=== PATIENT | male | born 1980 | race African-American/Black ===

== ENCOUNTER 2017-08-28 09:54 | Inpatient (IN) | payer OTHER ==
[2017-08-28] MEDS ORDERED: LORazepam 1 MG TAB PO ONE (10:01)
[2017-08-28] MEDS ORDERED: OLANZapine DISINTEGR 10 MG TAB PO ONE (10:01)
--- NOTE | 2017-08-28 10:04 | EDPHY ---
H & P - Medical/Surgical History Hx Asthma: No Hx Chronic Respiratory Disease: No Hx Diabetes: No Hx Cardiac Disease: No Hx Renal Disease: No Hx Cirrhosis: No Hx Alcoholism: No Hx HIV/AIDS: No Hx Splenectomy or Spleen Trauma: No Other PMH: BIPOLAR - Social History Smoking Status: Never smoked Time Seen by Provider: 08/28/17 09:56 HPI/ROS: CHIEF COMPLAINT: M1 hold, gravely disabled HISTORY OF PRESENT ILLNESS: 36-year-old male history of bipolar disorder arrives on M1 hold "gravely disabled" from his longterm for concerns over decompensation, medication noncompliance, possible hebert. Denies suicidal or homicidal ideation. Denies hallucination. He has no complaints of pain or discomfort. Denies self-injurious behavior. Denies alcohol or drug use. REVIEW OF SYSTEMS: A ten point review of systems was performed and is negative with the exception of the items mentioned in the HPI PAST MEDICAL & SURGICAL HISTORY: Bipolar disorder SOCIAL HISTORY: Denies alcohol or drug use PHYSICAL EXAM (Prior to examination, patient consented to physical exam, hands were washed and my usual and customary physical exam procedures followed) 1) GENERAL: Well-developed, well-nourished, alert and oriented. Appears to be in no acute distress. 2) HEAD: Normocephalic, atraumatic 3) HEENT: Sclera anicteric. 4) NECK: Full range of motion. 5) LUNGS: Clear auscultation bilaterally 6) HEART: Regular rate and rhythm, no murmur, no heave, no gallop. 7) ABDOMEN: No guarding, no rebound, no focal tenderness 8) MUSCULOSKELETAL: Moving all extremities, no focal areas of tenderness, no obvious trauma. 9) BACK: No visual or palpable abnormality. 10) SKIN: No rash, no petechiae. 11) Psychiatric: Patient is oriented X 3, he has rapid speech, flight of ideas, , tangential speech. DIFFERENTIAL DIAGNOSIS: In no particular order include but limited to hebert, hypomania, psychosis, depression, suicidal ideation, homicidal ideation (Cesar,Papa Linda) Constitutional: Initial Vital Signs Temperature (C) 37.2 C 08/28/17 10:08 Heart Rate 104 H 06/21/18 10:08 Respiratory Rate 18 08/28/17 10:08 Blood Pressure 117/79 08/28/17 10:08 O2 Sat (%) 95 08/28/17 10:08 O2 Delivery Mode Room Air Allergies/Adverse Reactions: No Known Allergies Allergy (Verified 08/28/17 10:06) Home Medications: Medication Instructions Recorded Invtaiwo Lion (RX) HS 08/28/17 Lisinopril 10 mg PO DAILY 08/28/17 Trileptal 600 mg PO BID 08/28/17 Medical Decision Making ED Course/Re-evaluation: 10:01 a.m.: Patient agrees to oral medication which I think would be beneficial to him as at this time I believe him to be more than likely acutely manic. He agrees to laboratory studies and agrees to mental health evaluation. He is on an M1 hold. I saw this patient independently based on established practice protocols. Care of patient under supervision of secondary supervising physician Dr Stoner . 5:00 p.m.: Care turned over to Dr. Jose Howe awaiting mental health evaluation. (Papa Guerrero) Patient has been evaluated by mental health and accepted for admission at [address] [place] [address]. (Eusebio Turner) Other Provider: 1440: Signed out to Carley with psychiatric evaluation pending for bipolar with grave disability and on a mental health hold. (Jerald Stoner) 2100: Patient care turned over to Dr. Turner at shift change. Psych evaluation still pending. (Jose Howe) - Data Points Laboratory Results: Laboratory Results 08/28/17 10:20 08/28/17 10:20 08/28/17 08/28/17 08/28/17 19:15 10:20 10:20 WBC 5.04 10^3/uL 10^3/uL (3.80-9.50) RBC 4.61 10^6/uL 10^6/uL (4.40-6.38) Hgb 13.2 g/dL L g/dL (13.7-17.5) Hct 40.1 % % (40.0-51.0) MCV 87.0 fL fL (81.5-99.8) MCH 28.6 pg pg (27.9-34.1) MCHC 32.9 g/dL g/dL (32.4-36.7) RDW 13.4 % % (11.5-15.2) Plt Count 394 10^3/uL 10^3/uL (150-400) MPV 8.3 fL L fL (8.7-11.7) Neut % (Auto) 49.0 % % (39.3-74.2) Lymph % (Auto) 36.7 % % (15.0-45.0) Harrison % (Auto) 9.1 % % (4.5-13.0) Eos % (Auto) 4.6 % % (0.6-7.6) Baso % (Auto) 0.4 % % (0.3-1.7) Nucleat RBC Rel Count 0.0 % % (0.0-0.2) Absolute Neuts (auto) 2.47 10^3/uL 10^3/uL (1.70-6.50) Absolute Lymphs (auto) 1.85 10^3/uL 10^3/uL (1.00-3.00) Absolute Monos (auto) 0.46 10^3/uL 10^3/uL (0.30-0.80) Absolute Eos (auto) 0.23 10^3/uL 10^3/uL (0.03-0.40) Absolute Basos (auto) 0.02 10^3/uL 10^3/uL (0.02-0.10) Absolute Nucleated RBC 0.00 10^3/uL 10^3/uL (0-0.01) Immature Gran % 0.2 % % (0.0-1.1) Immature Gran # 0.01 10^3/uL 10^3/uL (0.00-0.10) Sodium 145 mEq/L mEq/L (135-145) Potassium 4.1 mEq/L mEq/L (3.3-5.0) Chloride 106 mEq/L mEq/L (97-110) Carbon Dioxide 24 mEq/l mEq/l (22-31) Anion Gap 15 mEq/L mEq/L (8-16) BUN 17 mg/dL mg/dL (7-23) Creatinine 1.1 mg/dL mg/dL (0.7-1.3) Estimated GFR > 60 Glucose 92 mg/dL mg/dL (70-100) Calcium 9.6 mg/dL mg/dL (8.5-10.4) Urine Opiates Screen NEGATIVE (NEGATIVE) Urine Barbiturates NEGATIVE (NEGATIVE) Ur Phencyclidine Scrn NEGATIVE (NEGATIVE) Ur Amphetamine Screen NEGATIVE (NEGATIVE) U Benzodiazepines Scrn NEGATIVE (NEGATIVE) Urine Cocaine Screen NEGATIVE (NEGATIVE) U Marijuana (THC) Screen NON-NEGATIVE H (NEGATIVE) Ethyl Alcohol < 10 mg/dL mg/dL (0-10) Medications Given: Discontinued Medications Lisinopril (Zestril) 10 mg PO EDNOW ONE Stop: 08/28/17 15:31 Last Admin: 08/28/17 15:35 Dose: 10 mg Lorazepam (Ativan) 1 mg PO EDNOW ONE Stop: 08/28/17 10:02 Last Admin: 08/28/17 10:22 Dose: 1 mg Olanzapine (Zyprexa Zydis) 10 mg PO EDNOW ONE Stop: 08/28/17 10:02 Last Admin: 08/28/17 10:22 Dose: 10 mg Oxcarbazepine (Trileptal) 600 mg PO EDNOW ONE Stop: 08/28/17 15:31 Last Admin: 08/28/17 15:35 Dose: 600 mg Departure - Departure Disposition: [facility] IP Clinical Impression: Bipolar disorder Qualifiers: Active/Remission status: currently active Current bipolar episode type: manic Current episode severity: unspecified Qualified Code(s): F31.9 - Bipolar disorder, unspecified Condition: Fair Referrals: Patient,NotPresent [Primary Care Provider] - As per Instructions
[2017-08-28 10:37] LABS: PLATELET COUNT 394 10^3/uL (150-400)
[2017-08-28] MEDS ORDERED: LISINOPRIL 10 MG TAB PO ONE (15:30)
[2017-08-28] MEDS ORDERED: OXcarbazepine 300 MG TAB PO ONE (15:30)
[2017-08-28] MEDS ORDERED: OXcarbazepine 300 MG TAB PO SCH (21:00)
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
--- NOTE | 2017-08-28 22:41 | ASMTTCLDSP ---
TLC Discharge Disposition Disposition: Answers: Admit Discharge Concerns/Recommendations: Notes: IN CONSULTATION WITH [facility] ED PHYSICIAN, BRIAN MOBLEY MD AND ON-CALL PSYCHIATRIST, LARRY PENA MD, BOTH CONCURRED THAT PT APPEARS TO MEET 27-65 CRITERIA REQUIRING PSYCHIATRIC HOSPITALIZATION PT APPEARS TO BE AN IMMINENT RISK OF HARM TO SELF DUE TO A MENTAL ILLNESS CONDITION. PT WAS GIVEN THE 3N PROHIBITED BELONGINGS LIST WHILE IN THE ED. Was patient given the Answers: Yes Inpatient Behavioral Health Prohibited Belongings List while in the ED? For inpatient Larry Pena MD admission, the following psychiatrist agreed to accept patient for admission to Behavioral Health ([facility]): Type of Hold: Answers: M1/72-hour Hold Hold initiated by: Answers: Other Notes: Terra San L[facility] Date Signed: 08/28/2017 10:40 PM Electronically Signed By:Theresa Dinero
[2017-08-28] MEDS ORDERED: NICOTINE POLACRILEX 2 MG GUM B PRN (23:55)
[2017-08-28] MEDS ORDERED: ACETAMINOPHEN 325 MG TAB PO PRN (23:55)
[2017-08-28] MEDS ORDERED: OLANZapine DISINTEGR 5 MG TAB PO PRN (23:55)
[2017-08-28] MEDS ORDERED: MAG HYDROX/AL HYDROX/SIMETH 30 ML UDCUP PO PRN (23:55)
[2017-08-28] MEDS ORDERED: MAGNESIUM HYDROXIDE 30 ML UDCUP PO PRN (23:55)
[2017-08-29] MEDS ORDERED: LORazepam 1 MG TAB ONE (00:02)
[2017-08-29] MEDS ORDERED: LISINOPRIL 20 MG TAB PO SCH (09:00)
[2017-08-29] MEDS: LORazepam 1 MG TAB PO PRN ×2 (09:37)
[2017-08-29] MEDS: OXcarbazepine 300 MG TAB PO SCH ×2 (11:15→20:34)
[2017-08-29] MEDS: LISINOPRIL 10 MG TAB PO SCH (11:15)
--- NOTE | 2017-08-29 12:45 | BCON ---
[f rep st] BEHAVIORAL HEALTH CONSULTATION INTERNAL MEDICINE CONSULTATION DATE OF CONSULTATION: 08/29/2017 REFERRING PHYSICIAN: Suzette Pena MD REASON FOR REFERRAL: Medical clearance for inpatient behavioral health stay. HISTORY OF PRESENT ILLNESS: This patient was brought to the emergency department on an M1 hold from his senior living due to behavioral decompensation, medication noncompliance, and possible hebert. He was found to be manic in the emergency department, and he had medication administered, including lorazepam, olanzapine, and oxcarbazepine. He was evaluated by the mental health team and admitted for further psychiatric care. He presently is without any acute complaints. PAST MEDICAL HISTORY: 1. Gallstone pancreatitis. 2. Diabetic ketoacidosis, likely due to pancreatic dysfunction caused by gallstone pancreatitis. 3. Bipolar disorder PAST SURGICAL HISTORY: He had a cholecystectomy done laparoscopically in December 2015. SOCIAL HISTORY: Per the emergency department note, he was living in a senior living. He reports that he is living with his mother in [place]. He is not working. 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 His urinary toxicology screen was positive for marijuana. FAMILY HISTORY: His father has diabetes and complications. REVIEW OF SYSTEMS: He feels sleepy from the medications he received. He denies cough or dyspnea. He denies pain. He has had weight loss, approximately 11 kg documented in the chart since January of 2016. He denies nausea, vomiting, constipation, or diarrhea. Otherwise, a 10-point review of systems is negative. PHYSICAL EXAM: VITAL SIGNS: Blood pressure is 127/72. Heart rate is 94. Respiratory rate is 12. Oxygen saturation is 97% on room air. Temperature is 36.6 degrees centigrade. His weight is 99.8 kg. GENERAL: This is an obese man , sleeping in bed, arises eventually after verbal and tactile stimulation, cooperative, in no acute distress, but sleepy. HEENT: Extraocular movements are intact. Pupils are equal, round, and reactive to light. Mucous membranes are moist. Dentition is in good condition. NECK: Supple. HEART: There is a regular rate and rhythm, with no murmurs, rubs, or gallops. LUNGS: Clear to auscultation bilaterally. ABDOMEN: Benign. EXTREMITIES: There is no cyanosis , clubbing, or edema. NEUROLOGIC: He is alert, but sleepy and tends to drop off toward sleep when not being stimulated. Cranial nerves 2-12 are grossly intact. There is no focal weakness, and sensation is intact to light touch. LABORATORY STUDIES: From the emergency department: CBC showed mild anemia with a hemoglobin of 13.2. Otherwise, CBC was normal. Serum chemistry showed normal renal function and electrolytes. Glucose was normal at 92. Toxicology screen in the serum was negative for ethyl alcohol. Toxicology screen in the urine was non-negative for marijuana but otherwise negative for substances of abuse. ASSESSMENT/RECOMMENDATIONS: 1. Mental health issues pending further evaluation and management per Psychiatry and the mental health team. 2. Obesity, with weight loss compared to 2 years ago. I will add on a TSH to the sample that was drawn yesterday to ensure that hyperthyroidism is not contributing to his psychiatric state, as well as his weight loss. He is not clinically otherwise showing signs or symptoms of hyperthyroidism. 3. Hypertension appears to be adequately controlled with lisinopril. 4. Anemia of unclear etiology. It is mild, and he can have further evaluation with primary care as an outpatient. 5. Tobacco dependence. He was encouraged to quit smoking. 6. History of diabetic ketoacidosis. This was likely due to gallstone pancreatitis causing pancreatic dysfunction. It is possible that he has a reduced pancreatic reserve as a result however his blood sugar was normal on labs drawn yesterday in the emergency department. I will add on hemoglobin A1c to his labs. I see no medical contraindications to this patient's continued stay on the inpatient behavioral health unit or to any psychiatric medications or procedures. Thank you very much for including me in the care of this patient and please do not hesitate to contact me or the hospitalist service should there be need for further medical evaluation. /[id number]/MODL MTDD
--- NOTE | 2017-08-29 15:18 | ASMTCMCOM ---
CM Note CM Note Notes: Client refused to speak to this CC. Date Signed: 08/29/2017 03:17 PM Electronically Signed By:Bill Ridley
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
[2017-08-29] MEDS: OLANZapine DISINTEGR 10 MG TAB PO SCH (20:33)
[2017-08-30] MEDS: OLANZapine DISINTEGR 5 MG TAB PO PRN (04:33)
[2017-08-30] MEDS: LORazepam 1 MG TAB PO PRN (04:33)
[2017-08-30] MEDS: OLANZapine DISINTEGR 10 MG TAB PO SCH ×2 (09:09→20:39)
[2017-08-30] MEDS: LISINOPRIL 10 MG TAB PO SCH (09:09)
[2017-08-30] MEDS: OXcarbazepine 300 MG TAB PO SCH ×2 (09:09→20:39)
--- NOTE | 2017-08-30 13:42 | ASMTBHDC ---
Notes Note: Notes: Pt. was walking the halls while speaking with CC. Pt. stated he feels "okay". Pt. reports sleeping "alright". Pt. reported his medications make him feel more drowsy "more than like to be". Pt. denied SI, HI, AH, and paranoia. Pt. stated he has AH about "things in the future". Pt. stated he wants cc to "get the ball rolling" on his discharge. Pt. slept 4.5 hours. Pt. appeared to be falling asleep standing up, while speaking with CC. Pt.'s eye were closed for most of the conversation. Date Signed: 08/30/2017 01:42 PM Electronically Signed By:Claire Templeton
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
[2017-08-31] MEDS: LISINOPRIL 10 MG TAB PO SCH (08:16)
[2017-08-31] MEDS: OXcarbazepine 300 MG TAB PO SCH ×2 (08:16→20:23)
[2017-08-31] MEDS: LORazepam 1 MG TAB PO PRN ×2 (08:16→23:58)
[2017-08-31] MEDS: OLANZapine DISINTEGR 10 MG TAB PO SCH ×2 (08:16→20:23)
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
--- NOTE | 2017-08-31 15:32 | ASMTBHDC ---
Notes Note: Notes: CC approached pt. to check in, pt. asked if CC was "dr. Bullard", when CC explained who she was, pt. was not interested in talking. Pt. stated CC can setup follow-up appointments with his providers. Pt. denied SI, HI, AVH and paranoia. Date Signed: 08/31/2017 03:32 PM Electronically Signed By:Claire Templeton
[2017-08-31] MEDS: OLANZapine DISINTEGR 5 MG TAB PO PRN (23:58)
[2017-09-01] MEDS: LISINOPRIL 10 MG TAB PO SCH (08:44)
[2017-09-01] MEDS: OXcarbazepine 300 MG TAB PO SCH ×2 (08:45→21:01)
[2017-09-01] MEDS: OLANZapine DISINTEGR 10 MG TAB PO SCH ×2 (08:45→21:01)
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
--- NOTE | 2017-09-01 13:36 | ASMTCMCOM ---
CM Note CM Note Notes: Pt. stated he is feeling "good". Pt. stated he will not be returning to his mother's home upon discharge, but will instead stay with his brother, Ever, who in currently visiting in [place]. Pt. signed LATRICE for brother Ever, adding he doesn't know his phone number but that it can be found on the [employer] website. Pt. stated he and his brother are a part of the but could not say which branch. Pt. 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 Pt. stated he plans to live on campus and possible get a job with . Pt. presents as alert, disorganized, trouble remembering who people are, guarded, and with fair eye contact. Staff report pt. sleeping 4.5 hours and sign LATRICE for [facility]. Pt's [facility] senior resident care director phone number is [phone] Date Signed: 09/01/2017 01:35 PM Electronically Signed By:Claire Templeton
--- NOTE | 2017-09-01 14:42 | SOAPPROG ---
SOAP Progress Note Assessment/Plan: Assessment: Plan: 09/01/17 14:41 Bipolar/psychosis: Much improved over Friday. [facility]. Will contact [facility] re: meds. Subjective: Pt seen, discussed with staff. Reports feeling "just fine." Up and walking in the halls today. Much better groomed, appropriately dressed. Able to sit and discuss his treatment plan inc: meds. He states he does not take Zyprexa and was recently maintained only on Trileptal. He then asks what other meds he can take. I told him I would talk to [facility] first. He is accepting of this. He states his d/c plan is to "go back to campus." He states he has housing at the dorms and plans to live there. He does state he may "spend a night or two" at his mother's home after d/c. Objective: Vital Signs Temp Pulse Resp BP Pulse Ox 36.4 C 80 12 113/78 96 09/01/17 00:27 09/01/17 07:53 09/01/17 07:53 09/01/17 08:44 09/01/17 07:53 - Time Spent With Patient Time Spent With Patient: 25" ICD10 Worksheet Patient Problems: Problems Problem Status Onset Bipolar disorder Acute Dehydration Acute Diabetic ketoacidosis Acute Renal failure Acute Vomiting Acute
[2017-09-02] MEDS: OLANZapine DISINTEGR 5 MG TAB PO PRN (03:03)
[2017-09-02] MEDS: LORazepam 1 MG TAB PO PRN ×2 (03:03→21:14)
[2017-09-02] MEDS: LISINOPRIL 10 MG TAB PO SCH (08:38)
[2017-09-02] MEDS: OLANZapine DISINTEGR 10 MG TAB PO SCH ×2 (08:39→21:10)
[2017-09-02] MEDS: OXcarbazepine 300 MG TAB PO SCH ×2 (08:39→21:10)
--- NOTE | 2017-09-02 14:02 | ASMTBHDC ---
Notes Note: Notes: CC was able to speak to [facility] (Fatou) at [phone]; briefly regarding a poss. family meeting for tomorrow. MOC noted, that she was currently at work and will be work tomorrow, provided all necessary return contact information regarding this movie writer. MOC noted,"I hate to put a restraining order in on my own son, I'm sorry sir, I'm at work, I will have to call you back later." Fleet Dispatch Manager was able to leave all necessary return contact information. Will inform, treatment team regarding [facility] participation, poss. work conflict with potential discharge, etc. Date Signed: 09/02/2017 02:02 PM Electronically Signed By:Bill Ridley
--- NOTE | 2017-09-02 15:43 | SOAPPROG ---
SOAP Progress Note Assessment/Plan: Assessment: Plan: 09/01/17 14:41 Bipolar/psychosis: Much improved over Friday. [facility]. Will contact [facility] re: meds. 09/02/17 15:45 Bipolar: Much improved overall. Dr. Bello re: continuing Invega Sustenna. Will discuss with patient. Will schedule family meeting with mother if possible. Subjective: Pt seen, discussed with staff. More engaging with me today, though unable to persist. He remains easily distracted, internally focused, disorganized. He was out in the milieu twice today attempting to interact with others or attend group. Compliant with meds. Objective: Vital Signs Temp Pulse Resp BP Pulse Ox 36.4 C 84 16 119/65 95 09/02/17 00:30 09/02/17 00:30 09/02/17 00:30 09/02/17 00:30 09/02/17 00:30 MSE: Moderately agitated, distractible. Affect is expansive with continued odd grin. Mood is "good." TP is disorganized. TC reveals internal preoccupation, likely RIS, blocking. - Time Spent With Patient Time Spent With Patient: 15" ICD10 Worksheet Patient Problems: Problems Problem Status Onset Bipolar disorder Acute Dehydration Acute Diabetic ketoacidosis Acute Renal failure Acute Vomiting Acute
[2017-09-03] MEDS: OXcarbazepine 300 MG TAB PO SCH ×2 (08:39→21:10)
[2017-09-03] MEDS: LISINOPRIL 10 MG TAB PO SCH (08:39)
[2017-09-03] MEDS: OLANZapine DISINTEGR 10 MG TAB PO SCH ×2 (08:39→21:09)
--- NOTE | 2017-09-03 15:05 | SOAPPROG ---
SOAP Progress Note Assessment/Plan: Assessment: Plan: 09/01/17 14:41 Bipolar/psychosis: Much improved over Friday. [facility]. Will contact [facility] re: meds. 09/02/17 15:45 Bipolar: Much improved overall. Dr. Bello re: continuing Invega Sustenna. Will discuss with patient. Will schedule family meeting with mother if possible. 09/03/17 15:04 Bipolar: Continued improvement. Will start Latuda to assist with mood stabilization and psychosis. He is agreeable to this after review of the risks , benefits and alternatives. Will start at 40mg, monitor. Subjective: Pt seen, discussed with staff. Interactive, but still fairly guarded. I discussed Dr. Bello's recommendations and pt is adamant he will never take a LAM again. He states he and [facility] discussed this and he was taken off of Invega due to diabetes. He then states he believes Latuda was helpful and wants to take that. Objective: Vital Signs Temp Pulse Resp BP Pulse Ox 36.6 C 86 16 119/75 97 09/03/17 00:30 09/03/17 00:30 09/03/17 00:30 09/03/17 00:30 09/03/17 00:30 MSE: Adequately groomed, coop, guarded. Becomes moderately agitated when discussing Invega. Affect is otherwise constricted, stable. Mood is "fine." TP generally linear. TC reveals no obvious delusions, though he may still be experiencing paranoia. - Time Spent With Patient Time Spent With Patient: 25" ICD10 Worksheet Patient Problems: Problems Problem Status Onset Bipolar disorder Acute Dehydration Acute Diabetic ketoacidosis Acute Renal failure Acute Vomiting Acute
[2017-09-03] MEDS: LURASIDONE HCL 40 MG TAB PO SCH ×2 (17:26→17:36)
[2017-09-04] MEDS: OXcarbazepine 300 MG TAB PO SCH ×2 (09:31→20:20)
[2017-09-04] MEDS: LISINOPRIL 10 MG TAB PO SCH (09:31)
[2017-09-04] MEDS: OLANZapine DISINTEGR 10 MG TAB PO SCH ×2 (09:31→20:20)
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
[2017-09-05] MEDS: LISINOPRIL 10 MG TAB PO SCH (08:10)
[2017-09-05] MEDS: OXcarbazepine 300 MG TAB PO SCH ×2 (08:10→20:13)
[2017-09-05] MEDS: OLANZapine DISINTEGR 10 MG TAB PO SCH ×2 (08:11→20:14)
--- NOTE | 2017-09-05 12:25 | ASMTBHDC ---
Notes Note: Notes: CC spoke to treatment team regarding DP for client. Client is to discharge Friday morning in order to make it to his follow up case management appointment etc. Client remains stable on the unit. Date Signed: 09/05/2017 12:24 PM Electronically Signed By:Bill Ridley
--- NOTE | 2017-09-05 12:51 | SOAPPROG ---
SOAP Progress Note Assessment/Plan: Assessment: Plan: 09/01/17 14:41 Bipolar/psychosis: Much improved over Friday. [facility]. Will contact [facility] re: meds. 09/02/17 15:45 Bipolar: Much improved overall. Dr. Bello re: continuing Invega Sustenna. Will discuss with patient. Will schedule family meeting with mother if possible. 09/03/17 15:04 Bipolar: Continued improvement. Will start Latuda to assist with mood stabilization and psychosis. He is agreeable to this after review of the risks , benefits and alternatives. Will start at 40mg, monitor. 09/04/17 16:15 Bipolar: Appears to be approaching baseline. He is refusing LAM and I am not pursuing COM at this point as he is voluntarily taking PO meds and his clinical picture does not dictate it. Will CCM, continue d/c planning. He is clearly not receiving assistance from family. 09/05/17 12:51 Bipolar: Calm, in good behavioral control. Will CCM. Possible d/c early next week if all is well. Subjective: Pt seen, discussed with staff. Remains aloof, though in good behavioral control. Compliant with meds. Offers no c/o's. Has not specific idea where he will go when he leaves except to "the dorms at ." Objective: Vital Signs Temp Pulse Resp BP Pulse Ox 36.4 C 96 16 146/68 H 100 09/05/17 00:30 09/05/17 00:30 09/05/17 00:30 09/05/17 00:30 09/05/17 00:30 MSE: Calm, though guarded. Affect is constricted, stable. Mood is "good." TP linear. TC reveals continued paranoid thoughts. - Time Spent With Patient Time Spent With Patient: 15" ICD10 Worksheet Patient Problems: Problems Problem Status Onset Bipolar disorder Acute Dehydration Acute Diabetic ketoacidosis Acute Renal failure Acute Vomiting Acute
[2017-09-05] MEDS: LURASIDONE HCL 40 MG TAB PO SCH (19:19)
[2017-09-06] MEDS: OXcarbazepine 300 MG TAB PO SCH ×2 (08:17→20:32)
[2017-09-06] MEDS: LISINOPRIL 10 MG TAB PO SCH (08:18)
[2017-09-06] MEDS: OLANZapine DISINTEGR 10 MG TAB PO SCH ×2 (08:18→20:32)
--- NOTE | 2017-09-06 17:02 | SOAPPROG ---
SOAP Progress Note Assessment/Plan: Assessment: 36yo AAM with hx BMD and psychosis, also med noncompliance, refusing restart of a LAM. admitted with bizarre behavior and paranoia 09/06/17 16:01 per staff, slept 7hr. attending some groups, minimal participation. overall calm , and visible in milieu. Pt declined interview, stating he was fine, no problems, no problems with meds, and needed nothing. Seemed more irritable and annoyed with attempts at further questions, and seemed to become more paranoid, stating in irritable tone, "it seems like someone is in control here who does not exist". Refused to elaborate. "You know exactly what this facility was a week ago..." (stated this several times, not believing it was [facility] regardless of reassurance), "you can research it... it was a residential home". Stated he wanted to leave hospital next week and that everything was already set up for follow up appts, adding that he was told his (outpt) doctor was out of town, "they said he was, but he's really not". Did not want any further interactions and interview was terminated MSE: casually dressed, large AAM with limited eye contact, nml rate speech, little spontaneity, casually dressed, affect was irritable with MD attempt to engage pt with open-ended questioning, thoughts notable for some paranoid delusions, guarded; did not appear responding to any internal stimuli during observation in milieu, and denied any ah/vh or thoughts to harm self or others. insight poor, jdmnt impaired. PLAN: cont current meds. has been med compliant. does not want LAM. Latuda 40mg recently added to Zyprexa, Lamictal. continue to monitor for improvement. continues with evidence of psychotic thoughts but has been in behavioral control and appropriate in milieu. Objective: Vital Signs Temp Pulse Resp BP Pulse Ox 36.8 C 81 16 120/77 93 09/06/17 06:31 18 06:31 09/06/17 06:31 09/06/17 06:31 09/06/17 06:31 - Time Spent With Patient Time Spent With Patient: 10min - Pending Discharge Pending Discharge Within 24 Hours: No Pending Discharge Within 48 Hours: No ICD10 Worksheet Patient Problems: Problems Problem Status Onset Bipolar disorder Acute Dehydration Acute Diabetic ketoacidosis Acute Renal failure Acute Vomiting Acute
[2017-09-06] MEDS: LURASIDONE HCL 40 MG TAB PO SCH (17:16)
[2017-09-07] MEDS: OLANZapine DISINTEGR 10 MG TAB PO SCH ×2 (08:45→20:16)
[2017-09-07] MEDS: OXcarbazepine 300 MG TAB PO SCH ×2 (08:45→20:16)
[2017-09-07] MEDS: LISINOPRIL 10 MG TAB PO SCH (08:46)
--- NOTE | 2017-09-07 13:04 | ASMTBHDC ---
Notes Note: Notes: Patient would not engage in conversation with this CC and would only state that he is "fine." He was on the milieu and stated he was in group though there was no group taking place on the milieu. Date Signed: 09/06/2017 01:12 PM Electronically Signed By:Diana Rios
--- NOTE | 2017-09-07 14:08 | ASMTBHDC ---
Notes Note: Notes: Patient was on the milieu and he engaged in a brief conversation with this CC. Patient indicated he is "fine" and that appears to be his standard answer to all staff. 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 Patient tends to look at others suspiciously. Date Signed: 09/07/2017 02:07 PM Electronically Signed By:Diana Rios
[2017-09-07] MEDS: LURASIDONE HCL 40 MG TAB PO SCH (17:30)
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
[2017-09-08 06:27] VITALS: BP 130/81
[2017-09-08] MEDS: OLANZapine DISINTEGR 10 MG TAB PO SCH (08:36)
[2017-09-08] MEDS: LISINOPRIL 10 MG TAB PO SCH (08:36)
[2017-09-08] MEDS: OXcarbazepine 300 MG TAB PO SCH (08:36)
--- NOTE | 2017-09-08 13:16 | BDS ---
[f rep st] BEHAVIORAL HEALTH DISCHARGE SUMMARY REASON FOR ADMISSION: The patient was brought to the ER on an M1 hold for being gravely disabled from his retirement for concerns of decompensation, medication noncompliance. The patient was admitted involuntarily and was on an M1 hold due to being gravely disabled. The patient was admitted for safety, crisis stabilization, and medication management. ADMITTING DIAGNOSIS: Bipolar disorder. ADMISSION PHYSICAL EXAM: The patient was seen by Dr. Krishnan on 08/29/2017 for an internal medicine consultation for medical clearance for inpatient Behavioral Health stay. Dr. Krishnan reported he saw no medical contraindications to the patient's continued stay on the inpatient behavioral health unit or to any psychiatric medications or procedures. For further details regarding the physical exam upon admission, please see Dr. Krishnan's note dated 08/29/2017. ADMISSION LABS: From the emergency department, CBC showed mild anemia with a hemoglobin of 13.2. Otherwise, CBC was normal. Serum chemistry showed normal renal function and electrolytes. Glucose was normal at 92. Toxicology screen in the serum was negative for ethyl alcohol. Toxicology screen in the urine was non-negative for marijuana but otherwise negative for substances of abuse. HOSPITAL COURSE: Most prominent symptoms and behaviors while the patient was here were disorganized behavior and psychosis, including auditory hallucinations. The target symptoms during hospitalization were psychosis and hebert. Treatment modalities utilized were milieu and group therapy. The patient was restarted on Trileptal 600 mg p.o. b.i.d., Zyprexa Zydis 10 mg b.i.d., and Latuda 40 mg p.o. daily at 1800. These medications were started to target psychotic symptoms. Medications were tolerated with no report of side effects and with good response. The patient has improved considerably, with no signs of psychiatric symptoms and no psychiatric symptoms expressed. The patient reports he has improved since admission. States to be in stable condition. Feels safe to discharge and contracts for safety. The patient's response to treatment has been good. There were no adverse or unexpected results of treatment. The patient was safe throughout his stay, active in treatment, engaged in groups, and was appropriate with staff. The treatment team consensus is the patient is in stable condition and is safe to discharge today. CONDITION ON DISCHARGE: Patient is in stable condition and is no longer a danger to self or others, and is not gravely disabled due to mental illness. Patient is no longer in need of inpatient level of care, and can be safely and effectively treated within the community. The patients level of risk at time of discharge is low based on the risk assessment below following this discharge summary. MSE: The patient is casually dressed and with good hygiene, and looks stated age. Patient is sitting, posture is upright, and position is relaxed. Patient appears awake, alert, and responds appropriately and reasonably during interview. Patient is engaged, relates well to interviewer, and emotional facial expression is appropriate to situation and changes appropriately with topic. Patient is cooperative, makes comfortable eye contact, and movements are voluntary, deliberate, coordinated, and smooth and even with no inappropriate movements. Patient makes laryngeal sounds effortlessly and shares conversation appropriately; pace of conversation is appropriate, and stream of talking is fluent; articulation is clear and understandable; word choice is effortless and appropriate for education level; completes sentences, occasionally pausing to think; rate and volume are appropriate for interview and setting. Patient reports mood as euthymic. Patients affect is stable with full variable range, congruent with mood, and appropriate to speech and circumstances. Patient has linear and logical thinking, with no loose associations, tangential thought, thought blocking, concrete thinking, or any other signs of formal thought disorder. Patient denies suicidal and homicidal ideation, and denies hallucinations and delusions. Patient appears to be a reliable historian with sound judgement and good insight into current condition. Patient has no apparent dysfunction in recent or remote memory noted , and no evidence of gross cognitive dysfunction noted at any point during the interview. DISCHARGE DIAGNOSIS: Bipolar 1 disorder, severe, with mood congruent, psychotic features. DISCHARGE MEDICATIONS: The patient was discharged with prescriptions for 30 days for the following prescriptions: Oxcarbazepine 600 mg p.o. b.i.d. for mood , Zyprexa 10 mg p.o. b.i.d. for mood and psychosis, Latuda 40 mg p.o. daily at 1800, and lisinopril 10 mg p.o. daily. DISPOSITION: The patient left the hospital independently and voluntarily. FOLLOWUP: patient placement coordinator reports the appropriate outpatient follow-up services have been established and outpatient appointments have been scheduled. The patient received written instructions with times and dates of outpatient follow-up appointments. The following follow-up recommendations were provided to the patient at discharge: Continue psychotropic medications as prescribed and attend appointments as scheduled. Report any side effects to a psychiatric outpatient provider, a primary care provider, or other health med care manager. Address any questions or problems concerning the psychotropic medications with a psychiatric outpatient provider, a primary care provider, or other health med care manager. Contact [facility] or 1, or go to the nearest emergency room, if you are ever a danger to yourself/others, or unable to care for yourself. As soon as possible, establish a routine medication management treatment with a psychiatric provider, establish routine therapy appointments, and follow-up with a primary care provider. LEGAL COURSE: The patient was admitted on an for involuntary psychiatric hospitalization. During his hospitalization, he was placed on a short-term certification. Patient discharged today independently and voluntarily. ATTITUDE AT TIME OF DISCHARGE: The patients attitude was positive at time of discharge, and patient reports looking forward to discharging today. The patient reports he feels safe to discharge, is no longer a danger to himself or others, is in stable condition, and contracts for safety. Patient states he will continue medications as prescribed, and establish medication management treatment with an outpatient provider after discharge. Patient reports he understands the information that has been provided to him, and he understands, accepts, and agrees to psychotropic medications. LABS AND STUDIES: There were no pending labs or studies at time of discharge. ADVANCE DIRECTIVES: There were no advance directives on file, and patient was full code during hospitalization. The following psychotropic medication treatment informed consent and recommendations were provided to the patient at time of discharge. Patient reports he understands, accepts, and agrees to the information that has been provided. PSYCHOTROPIC MEDICATION TREATMENT INFORMED CONSENT and RECOMMENDATIONS: Review nature of condition, diagnosis, and prognosis. Review nature and purpose of psychotropic medication treatment. Review type of psychotropic medications being prescribed. Review risk and benefits of psychotropic medication treatment. Review probable length of time will need to take medications. Review risk and benefits of not undergoing psychotropic medication treatment. Review alternative treatments to psychotropic medications. Review psychotropic medications contraindications, side effects, and importance of reporting any side effects to a psychiatric provider, primary care provider, or other health med care manager. Review importance of her asking a psychiatric provider or primary care provider any questions or problems concerning the psychotropic medications. Review safety plan and the importance to contact [facility] or 911 , or go to the nearest emergency room, if ever a danger to yourself/others, or unable to care for yourself. Recommend upon discharge to establish routine medication management treatment with a psychiatric provider, establish routine therapy appointments, and follow-up with a primary care provider. Verify patient understands, accepts, and agrees to the information that has been provided. /[id number]/MODL MTDD
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
== END 2017-09-08 10:02 | disposition home or self-care (01) | DRG 885 ==
LOC: EEVIPCON 09:54 → BBEH 23:40
PROVIDERS: ADMIT Registered Nurse; ATTEND Registered Nurse
DX: F31.5 Bipolar disorder, current episode depressed, severe, with psychotic features (principal); T43.506A Underdosing of unspecified antipsychotics and neuroleptics, initial encounter; E66.9 Obesity, unspecified; I10 Essential (primary) hypertension; D64.9 Anemia, unspecified; F17.200 Nicotine dependence, unspecified, uncomplicated; E13.9 Other specified diabetes mellitus without complications; F12.90 Cannabis use, unspecified, uncomplicated
CPT/HCPCS: 80305; G0480

== ENCOUNTER 2018-01-24 13:55 | Inpatient (IN) | payer OTHER ==
[2018-01-24 14:54] LABS: PLATELET COUNT 358 10^3/uL (150-400)
--- NOTE | 2018-01-24 16:39 | ASMTTLCEVL ---
[facility] Evaluation - Basic Information Evaluation Start Date and 01/24/2018 02:45 PM Time Hospital Status Answers: M1 Hold 72-hr M1 Hold Start Date 01/23/2018 05:05 PM and Time Patient statement Notes: "How can I help you". Narrative Notes: Pt is a 37 year old male brought by police from the [facility]. He was in alf after he broke a protection order and tried to break into his grandma's house. Pt was placed on an M1 while in alf. Per , "Ct has a hx of bipolar disorder, has not been seen since September 2017. Disoriented, screaming "Truth project" and "Scotus" since being in alf. Agitated and refusing to talk, paranoid. Insight and judgement poor". Upon calling them [facility] learned that pt had not been willing to come to the hospital cooperatively until early this afternoon; the alf staff chose to wait until he could come to the ED with less force. Per [facility], pt was in alf due to a charge of "criminal mischief" .He arrived at [facility] from [facility]. They initially met with him on 01/25/18. Pt did not look at the clinician and continued to stare straight ahead. Pt announced he was angry and did not say anything further.They met with him again on 01/19/18. Affect was blunted, eye contact was poor and attitude was hostile and demanding. He let the [facility] clinician know that he did not intend to go to court on the following day. He made demands concerning his disability attorney. He answered several questions briefly and appeared not to want to answer any other questions. On 01/23/18 pt refused to go to court with his disability attorney. [facility] clinicians were called. He was observed staring at the ceiling. After multiple attempts at making contact pt began screaming "[employer]" and SCOTUS". He continued to escalate and the longer they spent at his door the more agitated he became. Per P the pt had not been compliant with his meds in alf. When this clinician met with the pt he was sitting on his bed watching tv. When the clinician would ask a question the pt would turn to look at her, briefly make eye-contact and then look down shaking his head. He offered no useful information and often responded with a question. His attitude was hostile though his voice remained soft and controlled and his body remained relaxed. There was incongruence between what he was saying(hostile) and his manner as he said it.(pleasant) Affect flat. Earlier the clinician had observed him appearing to talk to himself. Per P, they have previously seen pt with a much improved mental status, showing insight into his bipolar disorder. Pt has denied SI and HI. He has no known hx of aggression against a person; he has broken into other people's building 2x. Diagnosis History Notes: Bipolar 1 disorder Prior suicide attempts Notes: Pt denied. Prior hospitalizations Notes: Pt has a hx of multiple hospitalizations, 6-7 with his most recent in [facility] from 08/28/17 - 09/08/17. Treatment Responses Notes: Per [place] summary written on 09/08/17, "Pt was restarted on medications that were to target psychotic symptoms. The pt tolerated the medications well and improved considerablly., with no signs of psychiatric symptoms. Other responses to treatment are unknown. History of violence Notes: There is no reported hx. Psychiatrist: GA Sellers Medications (name, dosage, route, freq uency) Notes: Discharged from [facility] on: Oxcarbazepine 600mg bid Zyprexa 10mg bid Latuda 40mg daily at 1800 Lisinopril 10mg daily Allergies/Reaction Notes: None known Sleep Notes: Unknown. Appetite Notes: Pt asked for food immediately upon arrival. Medical/Surgical history Notes: Significant for diabetes, but he does not appear to be on any medications; upon admittance glucose was 100. Substance use history (frequency, intensity, his tory, duration) Notes: Per record on 04/28/17,pt reported he uses cannabis "occasionally, probablly a couple of times a month...drinks a few beers a month". Labs are negative for alcohol. Family composition Notes: Pt reports a sister who is 29y/o. MOC lives in [place] and FOC in August 2008 while in a diabetic coma. Need for family Answers: Yes participation in patient's care Family psychiatric/substance abuse history Notes: Unknown. Developmental history Notes: Pt was born in [place]. Graduated from [employer]. Abuse hx unknown. Marital status/children Notes: Pt is unamarried, no children. Living situation Notes: Pt lives in [place]. Sexual history/orientation Notes: Pt is heterosexual. Peer support/family strengths Notes: [facility] is a primary support. 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 Work history Notes: None known. 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 Legal Notes: Pt was brought from the alf. Sabianist/Spiritual Notes: Pt denies. Leisure Notes: Wtiting, reading and journaling. Collateral Notes: Pt's mother was contacted. The message said that "this phone does not accept incoming messages". [facility] Ruben Beck, Patient's strengths Answers: Artistic/Creative/Musical (Please select at least TWO strengths): Willingness TLC Evaluation - Mental Status Exam Appearance: Answers: Disheveled Eye Contact: Answers: Avoiding Staring Mood: Answers: Irritable Affect: Answers: Flat Guarded Behavior: Answers: Uncooperative Resistive to Care Speech: Answers: Nonsensical Soft Thought Process: Answers: Oriented Alert Insight: Answers: Poor Judgement: Answers: Poor Manic Signs/Symptoms Answers: Grandiosity Hallucinations: Answers: Auditory Pt reported to have Answers: No suicidal/self-injuring ideation/behavior? Pt reported to be making Answers: No suicidal/self-injuring threats? Pt reported to have Answers: No aggression/assault ideation/behavior? Pt reported to be making Answers: No aggression/assault threats? Pt exhibits inability to Answers: Yes care for self/grave disability? Ideation/behavior is Answers: No chronic? Patient has a specific Answers: No plan? Pt has access to means to Answers: No execute the plan? Ideation involves Answers: No serious/lethal intent? Ideation has Answers: No delusional/hallucinatory content? History of Answers: No suicidal/self-injuring ideation, behavior, or threats? History of Answers: No aggressive/assaultive ideation, behavior, or threats? History of serious Answers: No physical harm to self/others while in treatment setting? TLC Evaluation - Suicide/Homicide Risk Suicide Risk Factors: Answers: Bipolar Disorder Flat Affect Homicide/violence risk Answers: None factors: Current Suicidal Answers: No Ideation? Current Suicidal Ideation Answers: No in the Past 48 Hours? Current Suicidal Ideation Answers: No in the Past Month? Current Suicidal Answers: No Ideation, Worst Ever? Suicide Internal Answers: Other Notes: Angry, not depressed Protective Factors: Suicide External Answers: Other Notes: a mother Protective Factors: Ranking of patient's Answers: Low suicidal risk: Ranking of patient's Answers: Low homicidal risk: TLC Evaluation - Wrap-up BDI Total Score: Not completed BSS Total Score: Not completed AXIS I Diagnosis (include DSM-V and ICD-10 codes), must also be entered in [employer], which is the source of truth. Notes: Bipolar I Disorder, with Psychotic Features 296.44 (F31.2) Evaluation End Date and 01/24/2018 04:30 PM Time (HH:MM): Date Signed: 01/24/2018 04:38 PM Electronically Signed By:Tami Valencia
--- NOTE | 2018-01-24 16:48 | EDPHY ---
ED Course: This patient was seen primarily by Dr. Hendrickson - per records, he arrives on an M1 hold, non-cooperative in senior care and not taking medications. Patient is medically clear and will be transferred to . (Christoph Richardson) - Data Points Laboratory Results: Laboratory Results 01/24/18 14:40 01/24/18 14:40 Medications Given: Lisinopril (Zestril) 10 mg PO DAILY MARK ANTHONY Stop: 07/25/18 08:59 Last Admin: 02/01/18 08:47 Dose: 10 mg Olanzapine (Zyprexa Zydis) 10 mg PO Q6H PRN PRN Reason: Agitation, Psychosis Stop: 07/23/18 23:42 Last Admin: 02/01/18 02:10 Dose: 10 mg Discontinued Medications Influenza Virus Vaccine Quadrival (Flulaval Quad [id number] (6mo+)) 0.5 ml IM .ONCE ONE Stop: 01/26/18 13:32 Last Admin: 01/26/18 13:36 Dose: 0.5 ml Oxcarbazepine (Trileptal) 300 mg PO BID MARK ANTHONY Stop: 07/24/18 20:59 Last Admin: 01/26/18 21:13 Dose: 300 mg Oxcarbazepine (Trileptal) 300 mg PO HS MARK ANTHONY Stop: 07/26/18 20:59 Last Admin: 01/29/18 21:23 Dose: 300 mg Oxcarbazepine (Trileptal) 600 mg PO DAILY MARK ANTHONY Stop: 07/26/18 08:59 Last Admin: 01/30/18 08:11 Dose: 600 mg Oxcarbazepine (Trileptal) 600 mg PO BID MARK ANTHONY Stop: 07/29/18 20:59 Last Admin: 02/01/18 20:10 Dose: 600 mg Ziprasidone (Geodon) 60 mg PO BIDMEAL MARK ANTHONY Stop: 07/24/18 17:59 Last Admin: 01/28/18 18:55 Dose: 60 mg Ziprasidone (Geodon) 80 mg PO BIDMEAL MARK ANTHONY Stop: 07/24/18 17:59 Last Admin: 02/01/18 17:29 Dose: 80 mg General Time Seen by Provider: 01/24/18 14:05 Initial Vital Signs: Initial Vital Signs Temperature (C) 36.8 C 01/24/18 13:45 Heart Rate 68 01/24/18 13:45 Respiratory Rate 20 01/24/18 13:45 Blood Pressure 139/92 H 01/24/18 13:45 O2 Sat (%) 100 01/24/18 13:45 O2 Delivery Mode Room Air Allergies/Adverse Reactions: No Known Allergies Allergy (Verified 01/24/18 14:56) Home Medications: Medication Instructions Recorded Lisinopril 10 mg PO DAILY 30 Days #30 tablet 09/08/17 Oxcarbazepine [Trileptal] 600 mg PO BID 01/24/18 Ziprasidone HCl [Geodon] 60 mg PO DAILY 01/24/18 Ziprasidone HCl 120 mg PO HS 01/25/18 Departure - Departure Disposition: [facility] Clinical Impression: Altered mental status, Bipolar I disorder with mood-congruent psychotic features Condition: Fair
--- NOTE | 2018-01-24 16:54 | ASMTTCLDSP ---
TLC Discharge Disposition Disposition: Answers: Admit Discharge Concerns/Recommendations: Notes: In consultation with [facility] ED physician,Dr Cabrera ,and on-call psychiatrist, Dr Pratt , both concurred that Pt appears to meet 27-65 criteria requiring psychiatric hospitalization as Pt appears to be at risk of harm to due to grave disability due to a mental illness condition. Pt was given the 3N prohibited belongings list while in the ED. Was patient given the Answers: Yes Inpatient Behavioral Health Prohibited Belongings List while in the ED? For inpatient Dr Burak MD admission, the following psychiatrist agreed to accept patient for admission to Behavioral Health ([facility]): Type of Hold: Answers: M1/72-hour Hold Hold initiated by: Answers: Police Date Signed: 01/24/2018 04:54 PM Electronically Signed By:Tami Valencia
--- NOTE | 2018-01-24 20:31 | GCON ---
DATE OF CONSULTATION: 01/24/2018 CHIEF COMPLAINT: Agitation/psychosis. HISTORY: This is a 37-year-old man with a past medical history that includes bipolar disorder with p sychotic features with reported rapid decompensation when he goes off medications, who [facility] an [facility] where he was noted to be not cooperative and not taking his medications. Patient has a history of decompensating in the past with prior hospitalizations on the Behavioral Health Unit . At the time my evaluation, patient is somewhat irritable and did not readily partake in answering questions, when I asked if I could speak to him he stated irritably "go on". He declined answering a ny questions regarding why he was here, anything regarding his past medical history, and when asked a bout that, asked if we had found anything while he was here. He has been by in [facility]. PAST MEDICAL HISTORY: 1. Includes bipolar disorder with psychotic features and rapid decompensation. 2. History of type 2 diabetes and obesity. 3. Gallstone pancreatitis. 4. Episode of DKA. FAMILY HISTORY: Reportedly family is here in [place]. By chart reviewed, no significant family medi massiel history. PAST SURGICAL HISTORY: Patient denies. SOCIAL HISTORY: The patient is currently in penitentiary. He was previously living in a senior care. REVIEW OF SYSTEMS: A 10-point review of systems obtained and negative except as per HPI. HOME MEDICATIONS: Trileptal, lisinopril and Geodon. ALLERGIES: No known drug allergies. PHYSICAL EXAM: VITAL SIGNS: BP 136/86, heart rate 78, respiratory rate 18, O2 sats 97% on room air, temperature is 37.1. GENERAL APPEARANCE: This is a large man. He is awake and al ert. He is in no acute distress. EYES: Anicteric. HEENT: Neck is supple. CARDIOVASCULAR: Regular rate and rhythm. No MRG. PULMONARY: CTA bilatera lly. Normal work of breathing. ABDOMEN: Soft, nontender. EXTREMITIES: No clubbing, cyanosis, or edema. SKIN: Warm, dry, well perfused. NEURO/PSYCH: Patie nt is irritable and minimally interactive. CLINICAL DATA: Labs reviewed, notable for a white blood cell count of 3.28, sodium of 132, glucose i s 100. ASSESSMENT/PLAN: This is a 37-year-old man with bipolar disorder with psychotic features as well as previously reported diabetes and obesity, who presents with noncompliance from penitentiary. 1. Bipolar disorder with a history of rapid decompensation off medications and patient brought in af ter being noncompliant in penitentiary, refusing to take his medications. At this time, he is clearly irrita ble and guarded and have concerns that he may be responding to internal stimuli. He is on an M1 hold and will be brought over to Behavioral Health Unit. No medical reason for any medication thought ap propriate by Psychiatry to be contraindicated. 2. History of diabetes. This does seem to have resolved. There is also reports that he was previou sly morbidly obese, which no longer seems to be the case. Glucose of 100 most recently and prior hos pitalization with well-controlled glucoses and an A1c of 6.6. No indication for medication at this t corby. 3. Hyponatremia. This is mild and likely insignificant. No need for a recheck as a routine evaluat ion. 4. Patient new to my care. Old records reviewed, summarized as per HPI and past medical history. C are plan reviewed with [facility] nurse. Thank you for this consultation. Medicine will be available peripherally should questions or concern s arise during patient's hospitalization. /[id number]/MODL
[2018-01-24] MEDS ORDERED: MAG HYDROX/AL HYDROX/SIMETH 30 ML UDCUP PO PRN (23:43)
[2018-01-24] MEDS ORDERED: OLANZapine DISINTEGR 10 MG TAB PO PRN (23:43)
[2018-01-24] MEDS ORDERED: ACETAMINOPHEN 325 MG TAB PO PRN (23:43)
[2018-01-24] MEDS ORDERED: NICOTINE POLACRILEX 2 MG GUM B PRN (23:43)
[2018-01-24] MEDS ORDERED: MAGNESIUM HYDROXIDE 30 ML UDCUP PO PRN (23:43)
[2018-01-24] MEDS ORDERED: LORazepam 0.5 MG TAB PO PRN (23:43)
--- NOTE | 2018-01-25 09:14 | ASMTBHMTP ---
Master Treatment Plan Master Treatment Plan Answers: Impaired Reality for: Date: 01/25/2018 Diagnosis on Admission: Bipolar I Disorder, with psychotic features 296.44 (F31.2) Expected length of stay: 5-7 Reason for admission: Notes: The patient stated, "What can I do for ya?" multiple times. Upon being asked his reason for admission the patient stated, "undecided." The patient was observed eating breakfast; he appeared labile and irritable. The patient is not a reliable historian at this time. Patient's stated presenting problems: Notes: The patient's response was delayed; he stated, "undecided." Patient's goals for treatment: Notes: The patient stated, "get better." Patient's strengths: Notes: The patient stated, "getting better." Identify supports outside of hospital: Notes: The patient reported that he is supported outside of the hospital by his girlfriend, "Macarena." The patient was unable to provide further informationhe stated, "I have been away for a little; she may have changed it." Discharge criteria: Notes: Psychotic symptoms will be reduced or eliminated with return to baseline functioning in affect, thinking, and behavior prior to discharge. Initial disposition plan/considerations: Notes: The patient reported that he will go to his girlfriend's house, who he reported lives on campus. 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
--- NOTE | 2018-01-25 10:11 | PDMN ---
Medical Necessity Medical [place] [id number] Bipolar Disorders, Adult: Inpatient Care: 37 yo w / Bipolar I d/o with psychotic features on M1 hold for being gravely disabled as determined by GLASS SILVERER at [facility] b/c he was agitated and refused to talk. Admit IP status to behavioral health unit.
--- NOTE | 2018-01-25 16:07 | BAPA ---
DATE OF SERVICE: 01/25/2018 CHIEF COMPLAINT: "How can I help you?" HISTORY OF PRESENT ILLNESS: The patient is a 37-year-old man [facility]. He was in [facility] after violating a protection order and being charged with criminal mischief. Records indicates the patient was trying to break into his grandmother's house in [place]. He was transferred to the [facility] for outstanding warrants. He was placed on an M1 hold while in [facility] by 1 of the [facility] clinical staff. The mental health hold states "Client has a history of bipolar disorder , has not been seen since September of 2017, disoriented, screaming "truth project" and "scotus" since being in [facility], agitated and refusing to talk, paranoid. Insight and judgment poor." According to the evaluation that was done by [facility] staff, the patient refused to go to court with his senior trial attorney on 01/23/2018. [facility] clinicians were called. There, the [facility] LIFT SLAB OPERATOR is the person who placed the patient on the mental health hold and sent him to the [facility] ED for further evaluation. The patient had not agreed to take medications during the time that he was in [facility]. In our emergency department , the [facility] clinician met with the patient. During that evaluation, the patient was sitting in his bed watching TV. The patient would make brief contact eye contact with the interviewer. He would only respond briefly to questions. He was minimally forthcoming with information. He seemed to be guarded and defensive. The [facility] nuclear criticality safety engineer felt that the patient was hostile and irritable, although she acknowledged that the patient's manner was "pleasant" and relaxed. When this MD met with the patient on the inpatient behavioral health services unit, he was sitting in a rocking chair in front of the TV, wearing hospital scrub bottoms and a T-shirt. When the MD introduced himself and began asking questions, the patient was very jefferson, but he did not appear to be agitated or frustrated. He started by asking the MD, "what do you want?". The patient has a very gruff mannerism and his responses are very sharp and jefferson, but he does not present tense, restless, anxious, agitated. He does not appear to be in any acute distress. He does not appear to be responding to internal or external stimuli. He is not talking to himself as has been previously reported from other observers. He shows no outwardly observable signs of acute psychosis. He was guarded and defensive and not forthcoming with information as has been observed by other evaluators. However, he did tell MD what medications he has been taking recently, but he did not remember any of the doses. He cannot remember when he was last seen at [facility] or who his current providers there are. When MD pressed him for more information, the patient did say "why do not you look that up in your records." He was not threatening and did not make him make any verbal threats and was not posturing physically in any way that was intimidating or threatening. PAST PSYCHIATRIC HISTORY: The patient was most recently on the inpatient psych service on from August 29 to September 08, 2017. At that time, the patient was admitted for grave disability. He was brought to the emergency department on an M1 hold after police brought him to the [facility] walk-in clinic after what the police described as an "altercation" with his mother. Police were reportedly called because of the fight and he was brought to the walk-in clinic and then taken to the emergency department. The patient has numerous other psychiatric hospitalizations prior to his admission to [facility] in August. He was at [facility] in July of 2017. He is supposedly being followed through [facility], but according to collateral information from the [facility], he has not been seen by any of his providers there since September of 2017 when he was discharged from [facility]. During his hospitalization in August, he was started on a couple of new medications. He had been taking Trileptal 600 mg p.o. b.i.d. at [facility]. During his hospitalization, he was started on Zyprexa 10 mg p.o. b.i.d. and then Latuda was added. His discharge summary from [facility] indicates that the patient was disorganized and psychotic during his hospitalization, which was why the Zyprexa was added on top of the Trileptal. Then at some point during his hospitalization, the Latuda was added supposedly to target further mood instability. Dr. Bullard noted on 09/03/2017, "we will start Latuda to assist with mood stabilization and psychosis. He is agreeable to this after review of risks, benefits, and alternatives." Dr. Bullard mentioned that he had spoken with Dr. Bello who had been prescribing Invega Sustenna for the patient in the past. She states that the patient had done well on Invega Sustenna but he had some trouble with increased blood glucose levels on Invega and the patient when Dr. Bullard discussed it with the patient he refused any long-acting injectables. Dr. Bullard noted "I am not pursuing court-ordered medications at this point as he is voluntarily taking p.o. medications and his clinical picture does not dictate it." So patient remained on 2 second generation atypicals and Trileptal mood stabilizer. The patient had an elevated hemoglobin A1c, but it was only 6.6, and his blood glucose was normal, so he was not deemed to be a good candidate for oral antihyperglycemics or for insulin although some concern was raised about the effect atypical antipsychotics would have on his lipid profile and on the risk of worsening his blood glucose and putting him at risk for more serious forms of diabetes. ALLERGIES: Patient has no known drug allergies. CURRENT MEDICATIONS: The patient is currently prescribed Geodon 60 mg p.o. q.a.m. and 120 mg p.o. at bedtime, Trileptal 600 mg p.o. twice daily, and lisinopril 10 mg p.o. daily. The [facility] reports that the patient took his Geodon on Friday night, January 23 and on Friday morning, January 24 and those were the last known doses of Geodon. The [facility] does not have any records of when the patient last took Trileptal or lisinopril. LAB DATA: White cell count was 3.28, hemoglobin 14.6, hematocrit 43.1, platelet count 358. Sodium 132, potassium 4.8, chloride 94, BUN was 10, creatinine was 1.0, glucose 100, calcium 10.1. The urine drug screen was negative for all drugs of abuse. Ethyl alcohol level was undetected. PAST MEDICAL HISTORY: Is significant for gallstone pancreatitis and diabetic ketoacidosis, likely due to pancreatic dysfunction caused by gallstone pancreatitis. Surgical history patient had cholecystectomy done laparoscopically in December of 2015, SOCIAL HISTORY: The patient had been living in [place] during the time of his last admission. His mother lives in [place]. Father in August of 2008 while in a diabetic coma. The patient reports that he graduated from [employer] in 2000. It is not clear whether or not this is true. Collateral information from his previous admission indicates that the patient had attended or taken some classes at [employer]; however other reports say that he went to [employer] and that he was studying digital film making. According to information from the [facility], the patient had a restraining order not to have contact with his family. Supposedly, he violated that restraining order and broke into his grandmother's home in [place] where he was arrested and sent to [facility]. FAMILY HISTORY: We do not have any information about any history of mental illness or substance use in his family. SUBSTANCE USE HISTORY: The patient reports that he smokes cannabis "occasionally." According to records from his previous admission, the patient admitted to smoking marijuana a couple times a month and drinking alcohol a few times a month and 2 or more beers per occasion. The patient came to the ED from [facility] where he was in a controlled environment. He did not have access to drugs or alcohol. His urine drug screen was negative for all drugs of abuse and alcohol level was undetected. LEGAL HISTORY: The patient is currently on a [place] mitchell of $2500 charges are criminal mischief and violation of a restraining order. He was due to appear in court on 01/23/2018, but he refused to go. There is a letter from the court indicating that the patient is no longer in custody of [facility]. However, the way the mitchell is written, he will need to return to [facility] once treatment is completed. MENTAL STATUS EXAMINATION: This is a tall, overweight, male. He does seem to have lost weight since his previous admission when he was deemed to be obese. He is rocking in a rocking chair facing the television wearing scrub bottoms and a T-shirt. He is alert and oriented x3. His affect is euthymic, although at times he does seem to be irritable. His demeanor is appropriate. However, shortly after the MD engaged the patient in conversation , he did have several outbursts and went to his room. He is not in any way been threatening or verbally aggressive toward staff or peers. He has been cooperative so far. His speech rate is within normal limits. His volume is loud at times. He gives very jefferson and brief responses to questions in a gruff manner, but his body language is relaxed. Most of the time, he denies feeling sad, helpless, hopeless, worthless, and anxious. He denies racing thoughts. There is no evidence of pressured speech. He does not have increase in goal- directed activities or decreased need for sleep. He denies auditory and visual hallucinations. He denies feeling paranoid. He denies ideas of reference. His thought process is goal directed. He responds to questions appropriately, but with brief answers. It is difficult to assess his thought process because of his paucity of speech. His insight and judgment do appear to be impaired as evidenced by his refusal to take medications and by the fact that he violated the terms of his restraining order and committed a criminal act. This MD did not observe the patient responding to internal or external stimuli. He did not show any overt signs of hallucinations or delusions, although it was mentioned in the ED report that he had been talking to himself in the [facility], although 01/19/2018, he was seen by Farrah Hood the [facility] clinical school social worker, who stated that the patient "did not appear to want to answer any questions and was hostile toward this service writer." Bjorn Joaquinedd mentioned that the patient "seemed paranoid and angry" although she admitted that she was basing that on the fact that the patient was "not amenable to talking with this service writer." She states that the patient mostly responded with monosyllabic responses. She stated at that time that the patient "did not appear to be responding to general internal stimuli." She notes that the patient denied auditory and visual hallucinations. She states that the patient was "showing signs of psychosis" but then went on to say that there was no evidence of responding to internal external or stimuli. The patient did not endorse paranoid delusions or auditory visual hallucinations. It was unclear to this service writer how Bjorn Joaquinedd could conclude that the patient was overtly psychotic. Currently, patient is not showing signs of psychosis. He is defensive and withdrawn and guarded. That may be due to paranoia, but he is not disclosing. There are no obvious signs of delusions, ideas of reference, hallucinations, or other bizarre thoughts. He does not have grandiosity, elated or elevated mood, pressured speech, racing thoughts. He does not meet criteria for hebert. He denies any thoughts, plans or intents to hurt himself or anyone else. IMPRESSION: 1. Bipolar disorder with psychotic features based upon history. The patient is not showing any signs of acute psychosis or hebert at the current time. Most of the information obtained from collateral sources references his prior diagnosis and previous behavior. In [facility], the patient was agitated and refused to talk. At times, he was screaming, but did not present with any unsafe behavior. 2. Cannabis use disorder, unknown severity by history. 3. Alcohol use disorder, unknown severity by history. 4. Lack of social support, recent criminal charges, noncompliance with treatment and has not been seen by seen by [facility] since September of 2017, financial problems, homelessness, unemployed. PLAN: 1. Admit to inpatient behavior health services unit on 3 on an M1 hold. 2. Will monitor closely for safety. The patient is currently not exhibiting any signs of unsafe behavior. He is guarded and at times has brief outbursts, but he is able to deescalate and calm down. He is denying any symptoms of psychosis, is unclear whether or not his brief outbursts are signs of internal stim. He says no. 3. Will continue to monitor and observe the patient. He has been maintained on Trileptal as his primary mood stabilizer for over a year, although it is unclear whether or not he has been compliant with that medication at all during the last 6 months. At some point since his discharge from [facility] in September, Geodon must have been added to his regimen because that is what he was taking in [facility], but we do not have information yet as to when he started that medication or why he was taken off the Latuda and the olanzapine. 4. This MD will order an EKG due to the risk for cardiac adverse events related to Geodon. We will continue the patient on Geodon based upon information that the pharmacy was able to obtain from the [facility] that the patient had been taking his regular dose at least for the last several days. However, we will start the Trileptal at a lower dose since there is no information about his compliance with that medication and it is presumed that he has been refusing it in [facility]. 5. This MD has reviewed previous admission assessments by Dr. Bullard and discharge summaries by [facility] which indicate that the patient is at risk for diabetes. He has had elevated hemoglobin A1c and elevated blood glucoses in the past. It seems that he has lost a significant amount of weight, which may be helping to control his blood glucose without pharmacological intervention. However, given the fact of prior historical information suggesting that Invega has had negative effects, causing dyslipidemia and elevated glucose, we will try to avoid prescribing too many medications that will alter the patient's lipid profile and put him at further risk of developing diabetes. If the patient does not need to be on multiple medications with harmful metabolic effects, that should be avoided at all costs. 6. Estimated length of stay is 3-5 days. /[id number]/MODL MTDD
[2018-01-25] MEDS: ZIPRASIDONE HCL 20 MG CAP PO SCH (17:48)
[2018-01-25] MEDS ORDERED: ZIPRASIDONE HCL 40 MG CAP PO SCH (18:00)
[2018-01-25] MEDS: OXcarbazepine 300 MG TAB PO SCH (21:27)
[2018-01-26] MEDS: ZIPRASIDONE HCL 20 MG CAP PO SCH ×2 (08:23→17:57)
[2018-01-26] MEDS: OXcarbazepine 300 MG TAB PO SCH ×2 (08:24→21:13)
[2018-01-26] MEDS: LISINOPRIL 10 MG TAB PO SCH (08:24)
--- NOTE | 2018-01-26 08:27 | SOAPPROG ---
SOAP Progress Note Assessment/Plan: Assessment: Bipolar Disorder, Severe. Decreased sleep, irritable, agitated; withdrawn; Slight improvement noted. (see subjective/objective note). Patient is not safe to discharge at this time as patient continues to exhibit signs of hebert, and express hebert symptoms. Patient requires continued inpatient care because of current hebert, and requires inpatient level of care to stabilize in order to no longer be a danger to other and no longer be gravely disabled due to mental illness. Patient could benefit from continued inpatient hospitalization for crisis stabilization, safety, and medication evaluation. Plan: 1. Psychotropic medications: After reviewing options, risks, and benefits patient agrees to continue current medications. No medication changes at this time as more time is needed to determine ongoing tolerability and efficacy. Plan is to continue to observe patient for response and side effects from medications, and ongoing monitoring and evaluation. 2. Review with patient informed consent and recommendations for psychotropic medication treatment listed below 3. Labs: no additional labs at this time 4. Therapy: continue milieu and group therapy 5. Further investigation including gathering information from patients relatives and review of past case records to inform treatment plan. 6. Safety/Wellness plan and follow-up outpatient appointments to be established prior to discharge. Next steps are for patient to meet with resident care manager rn to plan a safe discharge plan and establish outpatient services for ongoing treatment. 7. Confer with inpatient treatment team regarding treatment plan. 8. Psychosocial stressors addressed through manager of case management 9. Legal status: M1 hold 10. Consider discharge end of the week if patient is in stable condition, safe, and has a safe discharge plan. PSYCHOTROPIC MEDICATION TREATMENT INFORMED CONSENT and RECOMMENDATIONS: Review nature of condition, diagnosis, and prognosis. Review nature and purpose of psychotropic medication treatment. Review type of psychotropic medications being ordered. Review risk and benefits of psychotropic medication treatment. Review probable length of time patient will need to take medications. Review risk and benefits of not undergoing psychotropic medication treatment. Review alternative treatments to psychotropic medications. Review psychotropic medications contraindications, drug-drug interactions, side effects, and importance of reporting any side effects to a psychiatric provider or nurse during inpatient hospitalization, and upon discharge to patients psychiatric outpatient provider, primary care provider, or other health landcare facilitator. Review importance of asking a nurse, psychiatric provider, or primary care provider any questions or problems concerning the psychotropic medications. Verify patient understands the information that has been provided, and understands, accepts, and agrees to psychotropic medications. Review patients safety plan and importance of patient to report to staff while hospitalized if patient is ever a danger to self/others, or unable to care for self, and upon discharge, the importance for patient to contact [facility] or [facility], or go to the nearest emergency room, if patient is ever a danger to self/others, or unable to care for self. Recommend that upon discharge patient establish medication management treatment with a psychiatric provider, establishes routine therapy appointments, and follow-up with primary care provider. Verify patient understands and agrees to these recommendations. 01/26/18 08:32 Subjective: Following up with patient for evaluation of psychosis and safety. Patient states, "Feeling alright today, yeah doing well." Patient does not report undesirable side effects from the medications, and agrees to continue current medications. Patient reports appetite as good, and reports eating all meals. Patient describes getting 4 hours of sleep last night, and reports he feels rested today. Patient reports he plans to stay with his mother or his girlfriend after discharge, and reports they should likely be visiting him while he is here. Objective: Vital Signs Temp Pulse Resp BP Pulse Ox 36.8 C 77 15 116/76 98 01/26/18 06:00 01/26/18 06:00 01/26/18 06:00 01/26/18 06:00 01/26/18 06:00 NURSING REPORT: Consulted with nursing for update on patients progress in treatment. Nurses report patient is not engaged in treatment, is not attending groups, slept 4 hours, expresses the following psychiatric symptoms: irritable, anxiety; exhibits the following psychiatric symptoms: nonverbal, withdrawn; is eating all meals, is agreeable to medications and taking as prescribed with no report of side effects, with no s/s of EPS/akathisia, and denies SI/HI, denies A /V hallucinations, and denies delusions. MD REPORT FROM WEEKEND: patient placed on M1 hold by [facility] due to being "hostile" and would not talk to hi lift operator. MSE: The patient is a well-nourished male looking stated chronological age. Attire is inappropriate and dress is casual and hospital garb combination. Grooming status is inappropriate and disheveled, unshaven. Ambulation is independent. Gait is normal and coordinated. Posture is normal and relaxed. Eye contact is appropriate. Motor activity is appropriate with purposeful, organized, coordinated movements; with no involuntary movements. Attitude is cooperative, at times guarded. Patient appears attentive and does relate well to this interviewer. Language production is spontaneous. R/R/V are normal. Amount is sparse to monosyllabic. Monotone. Articulation is clear. Patient reports mood as okay with incongruent and flat affect. Patients thought process is less disorganized, more logical, linear, with less loose associations , less tangential thought; overall thought process continues to improve. Patient does not report suicidal/homicidal thoughts, ideas, or plans. Patient denies auditory, visual hallucinations. Patient denies delusions. Patient does not appear to be attending to internal stimuli. Patients attention and concentration are poor. Patient is oriented to person, place, time. Patients insight and judgment poor. No evidence of gross cognitive dysfunction at any point during the interview. No evidence of apparent dysfunction in recent or remote memory. - Time Spent With Patient Time Spent With Patient: 15 minutes, met with patient individually. - Pending Discharge Pending Discharge Within 24 Hours: No Pending Discharge Within 48 Hours: No ICD10 Worksheet Patient Problems: Problems Problem Status Onset Altered mental status Acute Bipolar I disorder with mood-congruent psychotic features Acute
--- NOTE | 2018-01-26 11:49 | ASMTCMCOM ---
CM Note CM Note Notes: Client presents as guarded, limited interactions with peer or others, affect is restricted. CC was able to confirm through court records that he is to return to [facility] ([facility]) when his treatment at [facility] is complete. Please refer to his court ppw in the front of his chart. Date Signed: 01/26/2018 11:49 AM Electronically Signed By:Bill Ridley
--- NOTE | 2018-01-27 06:39 | SOAPPROG ---
SOAP Progress Note Assessment/Plan: Assessment: Bipolar Disorder, Severe. Patient not sleeping; thought blocking; withdrawn. No improvement noted. (see subjective/objective note). Patient is not safe to discharge at this time as patient continues to exhibit signs of hebert, and express hebert symptoms. Patient requires continued inpatient care because of current hebert, and requires inpatient level of care to stabilize in order to no longer be gravely disabled due to mental illness. Patient could benefit from continued inpatient hospitalization for crisis stabilization, safety, and medication evaluation. Plan: 1. Psychotropic medications: After reviewing options, risks, and benefits patient agrees to continue current medications. No medication changes at this time as more time is needed to determine ongoing tolerability and efficacy. Plan is to continue to observe patient for response and side effects from medications, and ongoing monitoring and evaluation. Reassess after EKG results. 2. Review with patient informed consent and recommendations for psychotropic medication treatment listed below 3. Labs: no additional labs at this time 4. Therapy: continue milieu and group therapy 5. Further investigation including gathering information from patients relatives and review of past case records to inform treatment plan. 6. Safety/Wellness plan and follow-up outpatient appointments to be established prior to discharge. Next steps are for patient to meet with healthcare market consultant to plan a safe discharge plan and establish outpatient services for ongoing treatment. 7. Confer with inpatient treatment team regarding treatment plan. 8. Psychosocial stressors addressed through corrections caseworker 9. Legal status: M1 10. Consider discharge end of the week if patient is in stable condition, safe, and has a safe discharge plan. PSYCHOTROPIC MEDICATION TREATMENT INFORMED CONSENT and RECOMMENDATIONS: Review nature of condition, diagnosis, and prognosis. Review nature and purpose of psychotropic medication treatment. Review type of psychotropic medications being ordered. Review risk and benefits of psychotropic medication treatment. Review probable length of time patient will need to take medications. Review risk and benefits of not undergoing psychotropic medication treatment. Review alternative treatments to psychotropic medications. Review psychotropic medications contraindications, drug-drug interactions, side effects, and importance of reporting any side effects to a psychiatric provider or nurse during inpatient hospitalization, and upon discharge to patients psychiatric outpatient provider, primary care provider, or other health restorative care technician. Review importance of asking a nurse, psychiatric provider, or primary care provider any questions or problems concerning the psychotropic medications. Verify patient understands the information that has been provided, and understands, accepts, and agrees to psychotropic medications. Review patients safety plan and importance of patient to report to staff while hospitalized if patient is ever a danger to self/others, or unable to care for self, and upon discharge, the importance for patient to contact [facility] or [facility], or go to the nearest emergency room, if patient is ever a danger to self/others, or unable to care for self. Recommend that upon discharge patient establish medication management treatment with a psychiatric provider, establishes routine therapy appointments, and follow-up with primary care provider. Verify patient understands and agrees to these recommendations. 01/27/18 06:40 Subjective: Following up with patient for evaluation of psychosis and safety. Patient states, "Doing fine." Patient does not report undesirable side effects from the medications, and agrees to continue current medications. Patient reports appetite as good, and reports eating all meals. Patient describes getting 2 hours of sleep last night, and reports he feels rested today. Objective: Vital Signs Temp Pulse Resp BP Pulse Ox 36.8 C 77 15 116/76 98 01/26/18 06:00 01/26/18 06:00 01/26/18 06:00 01/26/18 06:00 01/26/18 06:00 NURSING REPORT: Consulted with nursing for update on patients progress in treatment. Nurses report patient is not engaged in treatment, is not attending groups, slept 1.5 hours, expresses the following psychiatric symptoms: anxiety; exhibits the following psychiatric symptoms: monosyllabic to sparse answers to questions, monotone, withdrawn, patient staring blankly into his mirror in his room often throughout the day yesterday; is eating all meals, is agreeable to medications and taking as prescribed with no report of side effects, with no s/ s of EPS/akathisia, and denies SI/HI, denies A/V hallucinations, and denies delusions. TREATMENT TEAM MEETING: Patient refused to join treatment team meeting yesterday for review treatment plan and goals for hospitalization. MSE: The patient is a well-nourished male looking stated chronological age. Attire is inappropriate and dress is casual and hospital garb combination. Grooming status is inappropriate and disheveled, unshaven. Ambulation is independent. Gait is normal and coordinated. Posture is normal and relaxed. Eye contact is appropriate. Motor activity is appropriate with purposeful, organized, coordinated movements; with no involuntary movements. Attitude is cooperative, at times guarded. Patient appears attentive and does relate well to this interviewer. Language production is spontaneous. R/R/V are normal. Amount is sparse to monosyllabic. Monotone. Articulation is clear. Patient reports mood as okay with incongruent and flat affect. Patient's thought process appears to be blocked. Patient does not report suicidal/homicidal thoughts, ideas, or plans. Patient denies auditory, visual hallucinations. Patient denies delusions. Patient does appear to be attending to internal stimuli. Patients attention and concentration are poor. Patient is oriented to person, place, time. Patients insight and judgment poor. - Time Spent With Patient Time Spent With Patient: 15 minutes, met with patient individually. - Pending Discharge Pending Discharge Within 24 Hours: No Pending Discharge Within 48 Hours: No ICD10 Worksheet Patient Problems: Problems Problem Status Onset Altered mental status Acute Bipolar I disorder with mood-congruent psychotic features Acute
[2018-01-27] MEDS: ZIPRASIDONE HCL 20 MG CAP PO SCH ×2 (08:20→18:01)
[2018-01-27] MEDS: OXcarbazepine 300 MG TAB PO SCH ×2 (08:21→20:45)
[2018-01-27] MEDS: LISINOPRIL 10 MG TAB PO SCH (08:21)
--- NOTE | 2018-01-27 13:40 | ASMTCMCOM ---
CM Note CM Note Notes: Client remains mostly the same on the unit, please note that client is to go [facility] discharge.* Date Signed: 01/27/2018 01:39 PM Electronically Signed By:Bill Ridley
--- NOTE | 2018-01-28 07:03 | SOAPPROG ---
SOAP Progress Note Assessment/Plan: Assessment: Bipolar Disorder, Severe, with mood congruent psychotic features. No improvement noted. (see subjective/objective note). Patient is not safe to discharge at this time as patient continues to exhibit signs of hebert and psychosis, and express hebert and psychosis symptoms. Patient requires continued inpatient care because of current hebert and psychosis, and requires inpatient level of care to stabilize in order to no longer be gravely disabled due to mental illness. Due to patients current, acute state he is unable to communicate his basic needs and requires direction and prompting from staff to perform ADLs. Patient could benefit from continued inpatient hospitalization for crisis stabilization, safety, and medication evaluation. Plan: 1. Psychotropic medications: After reviewing options, risks, and benefits patient agrees to continue current medications. No medication changes at this time as more time is needed to determine ongoing tolerability and efficacy. Plan is to continue to observe patient for response and side effects from medications, and ongoing monitoring and evaluation. Awaiting EKG results prior to Geodon titration. 2. Review with patient informed consent and recommendations for psychotropic medication treatment listed below 3. Labs/Studies: Re-order EKG as has not been completed 4. Therapy: continue milieu and group therapy 5. Further investigation including gathering information from patients relatives and review of past case records to inform treatment plan. 6. Safety/Wellness plan and follow-up outpatient appointments to be established prior to discharge. Next steps are for patient to meet with senior care specialist to plan a safe discharge plan and establish outpatient services for ongoing treatment. 7. Confer with inpatient treatment team regarding treatment plan. 8. Psychosocial stressors addressed through family caseworker 9. Legal status: voluntary 10. Consider discharge next week if patient is in stable condition, safe, and has a safe discharge plan. PSYCHOTROPIC MEDICATION TREATMENT INFORMED CONSENT and RECOMMENDATIONS: Review nature of condition, diagnosis, and prognosis. Review nature and purpose of psychotropic medication treatment. Review type of psychotropic medications being ordered. Review risk and benefits of psychotropic medication treatment. Review probable length of time patient will need to take medications. Review risk and benefits of not undergoing psychotropic medication treatment. Review alternative treatments to psychotropic medications. Review psychotropic medications contraindications, drug-drug interactions, side effects, and importance of reporting any side effects to a psychiatric provider or nurse during inpatient hospitalization, and upon discharge to patients psychiatric outpatient provider, primary care provider, or other health career consultant. Review importance of asking a nurse, psychiatric provider, or primary care provider any questions or problems concerning the psychotropic medications. Verify patient understands the information that has been provided, and understands, accepts, and agrees to psychotropic medications. Review patients safety plan and importance of patient to report to staff while hospitalized if patient is ever a danger to self/others, or unable to care for self, and upon discharge, the importance for patient to contact [facility] or [facility], or go to the nearest emergency room, if patient is ever a danger to self/others, or unable to care for self. Recommend that upon discharge patient establish medication management treatment with a psychiatric provider, establishes routine therapy appointments, and follow-up with primary care provider. Verify patient understands and agrees to these recommendations. 01/28/18 07:00 Subjective: Following up with patient for evaluation of psychosis and safety. Patient states, "Good, yep, doing okay." Patient does not report undesirable side effects from the medications, and agrees to continue current medications. Patient reports appetite as good, and reports eating all meals. Patient describes getting no sleep last night, and reports he feels rested today. Patient states, "I do not feel tired." Patient agrees to EKG today. Objective: Vital Signs Temp Pulse Resp BP Pulse Ox 36.9 C 85 16 105/56 L 98 01/28/18 06:00 01/28/18 06:00 01/28/18 06:00 01/28/18 06:00 01/28/18 06:00 NURSING REPORT: Consulted with nursing for update on patients progress in treatment. Nurses report patient is not engaged in treatment, is not attending groups, slept 0 hours, expresses the following psychiatric symptoms: anxiety; exhibits the following psychiatric symptoms: monosyllabic to sparse answers to questions, monotone, withdrawn, patient staring into his mirror in his room more often throughout the day yesterday, attending to internal stimuli; is eating all meals, is agreeable to medications and taking as prescribed with no report of side effects, with no s/s of EPS/akathisia, and denies SI/HI, denies A /V hallucinations, and denies delusions. MSE: The patient is a well-nourished male looking stated chronological age. Attire is inappropriate and dress is casual and hospital garb combination. Grooming status is inappropriate and disheveled, unshaven. Ambulation is independent. Gait is normal and coordinated. Posture is normal and relaxed. Eye contact is appropriate. Motor activity is appropriate with purposeful, organized, coordinated movements; with no involuntary movements. Attitude is cooperative, at times guarded. Patient appears attentive and does relate well to this interviewer. Language production is spontaneous. R/R/V are normal. Amount is sparse to monosyllabic. Monotone. Articulation is clear. Patient reports mood as okay with incongruent and flat affect. Patients thought process blocked. Patient does not report suicidal/homicidal thoughts, ideas, or plans. Patient denies auditory, visual hallucinations. Patient denies delusions. Patient does appear to be attending to internal stimuli. Patients attention and concentration are poor. Patient is oriented to person, place, time. Patients insight and judgment poor. - Time Spent With Patient Time Spent With Patient: 15 minutes, met with patient individually. - Pending Discharge Pending Discharge Within 24 Hours: No Pending Discharge Within 48 Hours: No ICD10 Worksheet Patient Problems: Problems Problem Status Onset Altered mental status Acute Bipolar I disorder with mood-congruent psychotic features Acute
[2018-01-28] MEDS: OXcarbazepine 300 MG TAB PO SCH ×2 (08:19→18:56)
[2018-01-28] MEDS: ZIPRASIDONE HCL 20 MG CAP PO SCH ×2 (08:19→18:55)
[2018-01-28] MEDS: LISINOPRIL 10 MG TAB PO SCH (08:21)
--- NOTE | 2018-01-28 11:47 | ASMTCMCOM ---
CM Note CM Note Notes: Pt. reports having a "good" night. Pt. reports feeling "not bad". Pt. stated he slept a "little less. 3-5 hours". Staff report pt. not sleeping at all. Pt. reports he normally sleeps 5-7 hours. Pt. stated he would like more food on his trays. Pt. reports no issues with his current medications. Pt. stated he is attending groups, and shared about a helpful handout from a group. Pt. stated he is unsure of his discharge plan, adding he is "waiting on a visit from my girlfriend". Pt. denied SI, HI, AVH and paranoia. Pt. presents as alert, calm, fair eye contact, cooperative, and a mostly pleasant demeanor. Staff report pt. sleeping 0 hours and being medication compliant. Date Signed: 01/28/2018 11:47 AM Electronically Signed By:Claire Templeton
--- NOTE | 2018-01-28 19:18 | CPEKG ---
Test Reason : OPEN Blood Pressure : / mmHG Vent. Rate : 074 BPM Atrial Rate : 075 BPM P-R Int : 168 ms QRS Dur : 096 ms QT Int : 392 ms P-R-T Axes : 063 074 047 degrees QTc Int : 435 ms SINUS RHYTHM Confirmed by Yasmin Nicole ([id number]) on 01/28/2018 7:18:13 PM Referred By: Confirmed By:Yasmin Nicole
--- NOTE | 2018-01-29 06:37 | SOAPPROG ---
SOAP Progress Note Assessment/Plan: Assessment: Bipolar Disorder, Severe, with mood congruent psychotic features. No improvement noted. (see subjective/objective note). Patient is not safe to discharge at this time as patient continues to exhibit signs of hebert and psychosis, and express hebert and psychosis symptoms. Patient requires continued inpatient care because of current hebert and psychosis, and requires inpatient level of care to stabilize in order to no longer be gravely disabled due to mental illness. Due to patients current, acute psychosis and hebert he is unable to communicate his basic needs and requires direction and prompting from staff to perform ADLs. Patient could benefit from continued inpatient hospitalization for crisis stabilization, safety, and medication evaluation. Plan: 1. Psychotropic medications: After reviewing options, risks, and benefits patient agrees to continue current medications and increase Geodon to 80 mg po BID. QTc interval 435 from 01/28/18. No medication changes at this time as more time is needed to determine ongoing tolerability and efficacy. Plan is to continue to observe patient for response and side effects from medications, and ongoing monitoring and evaluation. Consider increasing Trileptal to 600 mg po BID tomorrow. 2. Review with patient informed consent and recommendations for psychotropic medication treatment listed below 3. Labs/Studies: no additional labs at this time; QTc interval 435 from . 4. Therapy: continue milieu and group therapy 5. Further investigation including gathering information from patients relatives and review of past case records to inform treatment plan. 6. Safety/Wellness plan and follow-up outpatient appointments to be established prior to discharge. Next steps are for patient to meet with personal carer to plan a safe discharge plan and establish outpatient services for ongoing treatment. 7. Confer with inpatient treatment team regarding treatment plan. 8. Psychosocial stressors addressed through transplant case manager 9. Legal status: voluntary 10. Consider discharge next week if patient is in stable condition, safe, and has a safe discharge plan. PSYCHOTROPIC MEDICATION TREATMENT INFORMED CONSENT and RECOMMENDATIONS: Review nature of condition, diagnosis, and prognosis. Review nature and purpose of psychotropic medication treatment. Review type of psychotropic medications being ordered. Review risk and benefits of psychotropic medication treatment. Review probable length of time patient will need to take medications. Review risk and benefits of not undergoing psychotropic medication treatment. Review alternative treatments to psychotropic medications. Review psychotropic medications contraindications, drug-drug interactions, side effects, and importance of reporting any side effects to a psychiatric provider or nurse during inpatient hospitalization, and upon discharge to patients psychiatric outpatient provider, primary care provider, or other health customer care team coach. Review importance of asking a nurse, psychiatric provider, or primary care provider any questions or problems concerning the psychotropic medications. Verify patient understands the information that has been provided, and understands, accepts, and agrees to psychotropic medications. Review patients safety plan and importance of patient to report to staff while hospitalized if patient is ever a danger to self/others, or unable to care for self, and upon discharge, the importance for patient to contact [facility] or [facility], or go to the nearest emergency room, if patient is ever a danger to self/others, or unable to care for self. Recommend that upon discharge patient establish medication management treatment with a psychiatric provider, establishes routine therapy appointments, and follow-up with primary care provider. Verify patient understands and agrees to these recommendations. 01/29/18 06:38 Subjective: Following up with patient for evaluation of psychosis and safety. Patient states, "Good, doing okay." Patient does not report undesirable side effects from the medications, and agrees to continue current medications. Patient reports appetite as good, and reports eating all meals. Patient describes getting a "few hours" of sleep last night, and reports he feels rested today. Discuss options, risks, and benefits of Geodon with patient, patient agrees to increase Geodon to 80 mg po BID. Objective: Vital Signs Temp Pulse Resp BP Pulse Ox 36.9 C 85 16 105/56 L 98 01/28/18 06:00 01/28/18 06:00 01/28/18 06:00 01/28/18 08:21 01/28/18 06:00 NURSING REPORT: Consulted with nursing for update on patients progress in treatment. Nurses report patient is not engaged in treatment, is not attending groups, slept 2 hours, expresses the following psychiatric symptoms: anxiety; exhibits the following psychiatric symptoms: monosyllabic to sparse answers to questions, monotone, withdrawn, patient staring into his mirror in his room more often throughout the day yesterday, attending to internal stimuli; patient observed pacing halls yesterday, attending to internal stimuli; is eating all meals, is agreeable to medications and taking as prescribed with no report of side effects, with no s/s of EPS/akathisia, and denies SI/HI, denies A/V hallucinations, and denies delusions. MSE: The patient is a well-nourished male looking stated chronological age. Attire is inappropriate and dress is casual and hospital garb combination. Grooming status is inappropriate and disheveled, unshaven. Ambulation is independent. Gait is normal and coordinated. Posture is normal and relaxed. Eye contact is appropriate. Motor activity is appropriate with purposeful, organized, coordinated movements; with no involuntary movements. Attitude is cooperative, at times guarded. Patient appears attentive and does relate well to this interviewer. Language production is spontaneous. R/R/V are normal. Amount is sparse to monosyllabic. Monotone. Articulation is clear. Patient reports mood as okay with incongruent and flat affect. Patients thought process blocked. Patient does not report suicidal/homicidal thoughts, ideas, or plans. Patient denies auditory, visual hallucinations. Patient denies delusions. Patient does appear to be attending to internal stimuli. Patients attention and concentration are poor. Patient is oriented to person, place, time. Patients insight and judgment poor. - Time Spent With Patient Time Spent With Patient: 15 minutes, met with patient individually. - Pending Discharge Pending Discharge Within 24 Hours: No Pending Discharge Within 48 Hours: No ICD10 Worksheet Patient Problems: Problems Problem Status Onset Bipolar I disorder with mood-congruent psychotic features Chronic
[2018-01-29] MEDS: LISINOPRIL 10 MG TAB PO SCH (08:37)
[2018-01-29] MEDS: ZIPRASIDONE HCL 40 MG CAP PO SCH ×2 (08:38→17:48)
[2018-01-29] MEDS: OXcarbazepine 300 MG TAB PO SCH ×2 (08:38→21:23)
--- NOTE | 2018-01-29 13:39 | ASMTCMCOM ---
CM Note CM Note Notes: Pt. reports feeling "alright". Pt. stated his lunch was good and he is getting enough to eat. Pt. stated he slept "okay". Pt. stated he was "not sure" if he had attended any groups. Pt. reports he is waiting for both his girlfriend and family to visit before he'll discuss discharge. Pt. was unclear about if he was allowed to use the phone. CC informed pt he can use the phone and how to go about that. Pt. denied SI, HI, AVH and paranoia. Pt. presents as alert, guarded, responding to internal stimuli, poor eye contact, and cooperative. Staff report pt. sleeping 2 hours and being medication compliant. Pt. stated his PCP is [facility] Date Signed: 01/29/2018 01:39 PM Electronically Signed By:lCaire Templeton
--- NOTE | 2018-01-30 06:39 | SOAPPROG ---
SOAP Progress Note Assessment/Plan: Assessment: Bipolar Disorder, Severe, with mood congruent psychotic features. No improvement noted. (see subjective/objective note). Patient is not safe to discharge at this time as patient continues to exhibit signs of hebert and psychosis, and express hebert and psychosis symptoms. Patient requires continued inpatient care because of current hebert and psychosis, and requires inpatient level of care to stabilize in order to no longer be gravely disabled due to mental illness. Due to patients current, acute psychosis and hebert he is unable to communicate his basic needs and requires direction and prompting from staff to perform ADLs. Patient could benefit from continued inpatient hospitalization for crisis stabilization, safety, and medication evaluation. Plan: 1. Psychotropic medications: After reviewing options, risks, and benefits patient agrees to continue current medications and increase Trileptal to 600 mg po BID. No medication changes at this time as more time is needed to determine ongoing tolerability and efficacy. Plan is to continue to observe patient for response and side effects from medications, and ongoing monitoring and evaluation. 2. Review with patient informed consent and recommendations for psychotropic medication treatment listed below 3. Labs/Studies: no additional labs at this time 4. Therapy: continue milieu and group therapy 5. Further investigation including gathering information from patients relatives and review of past case records to inform treatment plan. 6. Safety/Wellness plan and follow-up outpatient appointments to be established prior to discharge. Next steps are for patient to meet with doggy daycare activities director to plan a safe discharge plan and establish outpatient services for ongoing treatment. 7. Confer with inpatient treatment team regarding treatment plan. 8. Psychosocial stressors addressed through casework manager 9. Legal status: voluntary 10. Consider discharge next week if patient is in stable condition, safe, and has a safe discharge plan. PSYCHOTROPIC MEDICATION TREATMENT INFORMED CONSENT and RECOMMENDATIONS: Review nature of condition, diagnosis, and prognosis. Review nature and purpose of psychotropic medication treatment. Review type of psychotropic medications being ordered. Review risk and benefits of psychotropic medication treatment. Review probable length of time patient will need to take medications. Review risk and benefits of not undergoing psychotropic medication treatment. Review alternative treatments to psychotropic medications. Review psychotropic medications contraindications, drug-drug interactions, side effects, and importance of reporting any side effects to a psychiatric provider or nurse during inpatient hospitalization, and upon discharge to patients psychiatric outpatient provider, primary care provider, or other health caretaker. Review importance of asking a nurse, psychiatric provider, or primary care provider any questions or problems concerning the psychotropic medications. Verify patient understands the information that has been provided, and understands, accepts, and agrees to psychotropic medications. Review patients safety plan and importance of patient to report to staff while hospitalized if patient is ever a danger to self/others, or unable to care for self, and upon discharge, the importance for patient to contact [facility] or [facility], or go to the nearest emergency room, if patient is ever a danger to self/others, or unable to care for self. Recommend that upon discharge patient establish medication management treatment with a psychiatric provider, establishes routine therapy appointments, and follow-up with primary care provider. Verify patient understands and agrees to these recommendations. 01/30/18 06:42 Subjective: Following up with patient for evaluation of psychosis and safety. Patient states, "Good, doing okay." Patient does not report undesirable side effects from the medications, and agrees to continue current medications. Patient reports appetite as good, and reports eating all meals. Patient describes getting "a couple hours" of sleep last night, and reports he feels rested today. Patient agrees to increase Trileptal to 600 mg po BID. Objective: Vital Signs Temp Pulse Resp BP Pulse Ox 36.8 C 83 16 132/73 H 100 01/29/18 06:00 01/29/18 06:00 01/29/18 06:00 01/29/18 08:37 01/29/18 06:00 NURSING REPORT: Consulted with nursing for update on patients progress in treatment. Nurses report patient is not engaged in treatment, is not attending groups, slept 3 hours, expresses the following psychiatric symptoms: anxiety; exhibits the following psychiatric symptoms: monosyllabic to sparse answers to questions, monotone, withdrawn, patient continues to stare into his mirror in his room throughout the day, attending to internal stimuli; patient observed pacing halls again yesterday, attending to internal stimuli; is eating all meals , patient requires direction/prompting from staff to attend to ADLs; patient has difficulty communicating his basic needs; is agreeable to medications and taking as prescribed with no report of side effects, with no s/s of EPS/ akathisia, and denies SI/HI, denies A/V hallucinations, and denies delusions. MSE: The patient is a well-nourished male looking stated chronological age. Attire is inappropriate and dress is casual and hospital garb combination. Grooming status is inappropriate and disheveled, unshaven. Ambulation is independent. Gait is normal and coordinated. Posture is normal and relaxed. Eye contact is appropriate. Motor activity is appropriate with purposeful, organized, coordinated movements; with no involuntary movements. Attitude is cooperative, at times guarded. Patient appears attentive and does relate well to this interviewer. Language production is spontaneous. R/R/V are normal. Amount is sparse to monosyllabic. Monotone. Articulation is clear. Patient reports mood as okay with incongruent and flat affect. Patients thought process blocked. Patient does not report suicidal/homicidal thoughts, ideas, or plans. Patient denies auditory, visual hallucinations. Patient denies delusions. Patient does appear to be attending to internal stimuli. Patients attention and concentration are poor. Patient is oriented to person, place, time. Patients insight and judgment poor. - Time Spent With Patient Time Spent With Patient: 15 minutes, met with patient individually. - Pending Discharge Pending Discharge Within 24 Hours: No Pending Discharge Within 48 Hours: No ICD10 Worksheet Patient Problems: Problems Problem Status Onset Bipolar I disorder with mood-congruent psychotic features Chronic
[2018-01-30] MEDS: OXcarbazepine 300 MG TAB PO SCH ×2 (08:11→19:01)
[2018-01-30] MEDS: LISINOPRIL 10 MG TAB PO SCH (08:11)
[2018-01-30] MEDS: ZIPRASIDONE HCL 40 MG CAP PO SCH ×2 (08:11→19:01)
--- NOTE | 2018-01-30 12:57 | ASMTCMCOM ---
CM Note CM Note Notes: Client remains guarded while on unit. Sleep is inconsistent, client still disorganized (most of the time). Provider, titrated client's medication (Geodon) to 80 mg, BID. Client will be on the unit through the weekend. Marker of improvement would be increase in sleep and communication with others. Date Signed: 01/30/2018 12:56 PM Electronically Signed By:Bill Ridley
[2018-01-31] MEDS: ZIPRASIDONE HCL 40 MG CAP PO SCH ×2 (09:20→17:09)
[2018-01-31] MEDS: LISINOPRIL 10 MG TAB PO SCH (09:20)
[2018-01-31] MEDS: OXcarbazepine 300 MG TAB PO SCH ×2 (09:20→17:09)
--- NOTE | 2018-01-31 11:02 | SOAPPROG ---
SOAP Progress Note Assessment/Plan: Assessment: PER ZOE DONALD CASING SOAKER as of 01/30/18: Bipolar Disorder, Severe, with mood congruent psychotic features. No improvement noted. (see subjective/objective note). Patient is not safe to discharge at this time as patient continues to exhibit signs of hebert and psychosis, and express hebert and psychosis symptoms. Patient requires continued inpatient care because of current hebert and psychosis, and requires inpatient level of care to stabilize in order to no longer be gravely disabled due to mental illness. Due to patients current, acute psychosis and hebert he is unable to communicate his basic needs and requires direction and prompting from staff to perform ADLs. Patient could benefit from continued inpatient hospitalization for crisis stabilization, safety, and medication evaluation. Plan: 1. Psychotropic medications: After reviewing options, risks, and benefits patient agrees to continue current medications and increase Trileptal to 600 mg po BID. No medication changes at this time as more time is needed to determine ongoing tolerability and efficacy. Plan is to continue to observe patient for response and side effects from medications, and ongoing monitoring and evaluation. 2. Review with patient informed consent and recommendations for psychotropic medication treatment listed below 3. Labs/Studies: no additional labs at this time 4. Therapy: continue milieu and group therapy 5. Further investigation including gathering information from patients relatives and review of past case records to inform treatment plan. 6. Safety/Wellness plan and follow-up outpatient appointments to be established prior to discharge. Next steps are for patient to meet with manager career to plan a safe discharge plan and establish outpatient services for ongoing treatment. 7. Confer with inpatient treatment team regarding treatment plan. 8. Psychosocial stressors addressed through pillowcase maker 9. Legal status: voluntary 10. Consider discharge next week if patient is in stable condition, safe, and has a safe discharge plan. 01/31/18 16:41 [place] [facility] [place] slept 2.5hr last night. occasionally nods off during day. taking meds. not notably improved from admission. on eval, pt reports he feels "better", attributes this to "a routine schedule, medications", unable to be more specific regarding any symptoms. denies feeling depressed. reports being "excited about my visit with family and friends". regarding sleep, states he "used to have" sleep apnea, "used to snore" and reports not having sleep apnea issues anymore. unsure how he knows this for certain. taking meds. denies medication side effects. vague responses to questions. denied any SI or thoughts to harm others. no overt delusions or paranoia noted. no abn invol mvmts noted. fair e/c, nml speech rate/vol. casually dressed, disheveled. terminated interview stating he was done talking and answering questions. PLAN: continue current meds. monitor for improvement. pt focused on having family meeting arranged. will d/w cc. consider CINTHIA screening consider add med for insomnia Objective: Vital Signs Temp Pulse Resp BP Pulse Ox 36.4 C 70 16 130/82 H 97 01/31/18 06:00 01/31/18 06:00 01/31/18 06:00 01/31/18 09:20 01/31/18 06:00 - Time Spent With Patient Time Spent With Patient: 15min - Pending Discharge Pending Discharge Within 24 Hours: No Pending Discharge Within 48 Hours: No ICD10 Worksheet Patient Problems: Problems Problem Status Onset Bipolar I disorder with mood-congruent psychotic features Chronic
--- NOTE | 2018-01-31 12:46 | ASMTCMCOM ---
CM Note CM Note Notes: Pt. reports feeling "not bad". Pt. stated he slept "little less". Pt. reports eating well and attending groups "for the most part". Pt. stated his medications are "still new", reporting no issues, pt stated "hopefully none [medication issues] come up". Pt. stated he is "excited about visit coming", but stated he doesn't know if he will have visitors. Pt. stated he hasn't called anyone while on the unit. Pt. provided CC with his "brother/nephew" ([phone]). Pt. denied SI, HI, AVH and paranoia. Pt. presents as alert, calm, guarded, passive, somewhat cooperative yet unwilling to call family, lacking eye contact and short answers. Staff report pt. sleeping 2.5 hours, being medication compliant and responding to internal stimuli. Date Signed: 01/31/2018 12:45 PM Electronically Signed By:Claire Templeton
[2018-02-01] MEDS: OXcarbazepine 300 MG TAB PO SCH ×2 (08:46→20:10)
[2018-02-01] MEDS: ZIPRASIDONE HCL 40 MG CAP PO SCH ×2 (08:46→17:29)
[2018-02-01] MEDS: LISINOPRIL 10 MG TAB PO SCH (08:47)
--- NOTE | 2018-02-01 12:49 | ASMTCMCOM ---
CM Note CM Note Notes: Pt. reports "no changes today". Pt. stated he "slept more than I expected". Pt. stated he is eating well and attending groups. Pt. reports no issues with his medications, stating "still new, still adjusting". Pt. stated he is already connected with [facility]. Pt. stated he is willing to continue taking medications after discharge. Pt. denied SI, HI, AVH and paranoia. Pt. stated he is still waiting on a visit, adding why hasn't the CC set one up. CC encouraged pt to call his family and see when they would be able to visit. Pt. stated he cannot call his family due to the tension between them, adding the CC needs to call. Pt. stated his mother works at [employer], and told CC to call and ask for her or go down and visit with pt's mother. CC ended the conversation by walking away when pt became upset. Pt. presents as alert, passive in speak with CC, annoyed, lacking eye contact and lacking insight. Staff report pt. sleeping 2.5 hours and being medication compliant. Pt. was observed responding to internal stimuli. The charge nurse log reports pt. having "several lupis outbursts" last evening. Date Signed: 02/01/2018 12:48 PM Electronically Signed By:Claire Templeton
[2018-02-01] MEDS ORDERED: diphenhydrAMINE 50 MG CAP PO PRN (21:50)
--- NOTE | 2018-02-01 21:51 | SOAPPROG ---
SOAP Progress Note Assessment/Plan: Assessment: PER ZOE DONALD INSPECTOR PLUG SEAM as of 01/30/18: Bipolar Disorder, Severe, with mood congruent psychotic features. No improvement noted. (see subjective/objective note). Patient is not safe to discharge at this time as patient continues to exhibit signs of hebert and psychosis, and express hebert and psychosis symptoms. Patient requires continued inpatient care because of current hebert and psychosis, and requires inpatient level of care to stabilize in order to no longer be gravely disabled due to mental illness. Due to patients current, acute psychosis and hebert he is unable to communicate his basic needs and requires direction and prompting from staff to perform ADLs. Patient could benefit from continued inpatient hospitalization for crisis stabilization, safety, and medication evaluation. Plan: 1. Psychotropic medications: After reviewing options, risks, and benefits patient agrees to continue current medications and increase Trileptal to 600 mg po BID. No medication changes at this time as more time is needed to determine ongoing tolerability and efficacy. Plan is to continue to observe patient for response and side effects from medications, and ongoing monitoring and evaluation. 2. Review with patient informed consent and recommendations for psychotropic medication treatment listed below 3. Labs/Studies: no additional labs at this time 4. Therapy: continue milieu and group therapy 5. Further investigation including gathering information from patients relatives and review of past case records to inform treatment plan. 6. Safety/Wellness plan and follow-up outpatient appointments to be established prior to discharge. Next steps are for patient to meet with career orientation teacher to plan a safe discharge plan and establish outpatient services for ongoing treatment. 7. Confer with inpatient treatment team regarding treatment plan. 8. Psychosocial stressors addressed through telehealth case manager 9. Legal status: voluntary 10. Consider discharge next week if patient is in stable condition, safe, and has a safe discharge plan. 01/31/18 16:41 per nsg staff, slept 2.5hr last night. occasionally nods off during day. taking meds. not notably improved from admission. staff still note pt responding to internal stim in his room and occasionally in milieu. on eval, pt reports he feels "better", attributes this to "a routine schedule, medications", unable to be more specific regarding any symptoms. denies feeling depressed. reports being "excited about my visit with family and friends". regarding sleep, states he "used to have" sleep apnea, "used to snore" and reports not having sleep apnea issues anymore. unsure how he knows this for certain. taking meds. denies medication side effects. vague responses to questions. denied any SI or thoughts to harm others. no overt delusions or paranoia noted. no abn invol mvmts noted. fair e/c, nml speech rate/vol. casually dressed, disheveled. terminated interview stating he was done talking and answering questions. PLAN: continue current meds. monitor for improvement. pt focused on having family meeting arranged. will d/w cc. consider CINTHIA screening 02/01/18 15:52 per staff, pt slept 2.5hr again last night. apparently became very irritable with cc around not having a family meeting arranged yet. does not want to contact his mother or family b/c of conflict still reported to be responding to internal stimuli. on eval, pt reports medications "are helping a lot" but unable to state how. denied s/e. unable to state what symptoms have improved since admission. pacing halls. nml vol/rate speech. disheveled. fair e/c, seemed disinterested in engaging in interview. denied AH/VH or SI or thoughts to harm others. vague responses, admits mood today is "a little irritable", affect congruent. when asked about family mtg he requests, states he is insistent on having one arranged because "this is required for me" while here or prior to d/c. then abruptly stated, "we're done" (with interview) and walked off. PLAN: on detainer from assisted. wants cc to coordinate a family meeting. cont Geodon 80mg bid, Trileptal 600mg bid. staff doing mouth checks. used zyprexa 10mg around 2am. o/w no prns. add Benadryl 50mg hs prn insomnia. Objective: Vital Signs Temp Pulse Resp BP Pulse Ox 36 C 77 14 118/63 97 02/01/18 13:52 02/01/18 13:52 02/01/18 13:52 02/01/18 13:52 02/01/18 13:52 - Time Spent With Patient Time Spent With Patient: 15min - Pending Discharge Pending Discharge Within 24 Hours: No Pending Discharge Within 48 Hours: No ICD10 Worksheet Patient Problems: Problems Problem Status Onset Bipolar I disorder with mood-congruent psychotic features Chronic
--- NOTE | 2018-02-02 07:26 | SOAPPROG ---
SOAP Progress Note Assessment/Plan: Assessment: Bipolar Disorder, Severe, with mood congruent psychotic features. R/O schizophrenia, R/O schizoaffective disorder, bipolar type. No improvement noted. (see subjective/objective note). Increase in current medications is indicated. Patient is not safe to discharge at this time as patient continues to exhibit signs of hebert and psychosis, and express hebert and psychosis symptoms. Patient requires continued inpatient care because of current hebert and psychosis, and requires inpatient level of care to stabilize in order to no longer be gravely disabled due to mental illness. Due to patients current, acute state he is unable to communicate his basic needs and requires direction and prompting from staff to perform ADLs. Patient could benefit from continued inpatient hospitalization for crisis stabilization, safety, and medication evaluation. Plan: 1. Psychotropic medications: Patient showing no improvement increase in current medications is indicated. After reviewing options, risks, and benefits patient agrees to continue current medications and increase Trileptal to 600 mg po QD and 900 mg po QHS and increase Geodon to 100 mg po BID. No medication changes at this time as more time is needed to determine ongoing tolerability and efficacy. Plan is to continue to observe patient for response and side effects from medications, and ongoing monitoring and evaluation. 2. Review with patient informed consent and recommendations for psychotropic medication treatment listed below 3. Labs/Studies: no additional labs at this time 4. Therapy: continue milieu and group therapy 5. Further investigation including gathering information from patients relatives and review of past case records to inform treatment plan. 6. Safety/Wellness plan and follow-up outpatient appointments to be established prior to discharge. Next steps are for patient to meet with lawn caretaker to plan a safe discharge plan and establish outpatient services for ongoing treatment. 7. Confer with inpatient treatment team regarding treatment plan. 8. Psychosocial stressors addressed through vocational case manager 9. Legal status: voluntary 10. Consider discharge next week if patient is in stable condition, safe, and has a safe discharge plan. PSYCHOTROPIC MEDICATION TREATMENT INFORMED CONSENT and RECOMMENDATIONS: Review nature of condition, diagnosis, and prognosis. Review nature and purpose of psychotropic medication treatment. Review type of psychotropic medications being ordered. Review risk and benefits of psychotropic medication treatment. Review probable length of time patient will need to take medications. Review risk and benefits of not undergoing psychotropic medication treatment. Review alternative treatments to psychotropic medications. Review psychotropic medications contraindications, drug-drug interactions, side effects, and importance of reporting any side effects to a psychiatric provider or nurse during inpatient hospitalization, and upon discharge to patients psychiatric outpatient provider, primary care provider, or other health care coordination manager. Review importance of asking a nurse, psychiatric provider, or primary care provider any questions or problems concerning the psychotropic medications. Verify patient understands the information that has been provided, and understands, accepts, and agrees to psychotropic medications. Review patients safety plan and importance of patient to report to staff while hospitalized if patient is ever a danger to self/others, or unable to care for self, and upon discharge, the importance for patient to contact [facility] or [facility], or go to the nearest emergency room, if patient is ever a danger to self/others, or unable to care for self. Recommend that upon discharge patient establish medication management treatment with a psychiatric provider, establishes routine therapy appointments, and follow-up with primary care provider. Verify patient understands and agrees to these recommendations. 02/02/18 07:26 Subjective: Following up with patient for evaluation of psychosis and safety. Patient states, "Still doing good." Patient does not report undesirable side effects from the medications, and agrees to continue current medications. Patient reports appetite as good, and reports eating all meals. Patient describes getting "an hour or so" of sleep last night, and reports he feels rested today. Patient agrees to increase Trileptal to 600 mg po QD and 900 mg po QHS and increase Geodon to 100 mg po BID. Objective: Vital Signs Temp Pulse Resp BP Pulse Ox 36.5 C 73 16 131/77 H 100 02/02/18 06:00 02/02/18 06:00 02/02/18 06:00 02/02/18 06:00 02/02/18 06:00 NURSING REPORT: Consulted with nursing for update on patients progress in treatment. Nurses report patient is not engaged in treatment, is not attending groups, slept 1 hour, expresses the following psychiatric symptoms: anxiety; exhibits the following psychiatric symptoms: monosyllabic to sparse answers to questions, monotone, withdrawn, patient continues to stare into his mirror in his throughout the day, attending to internal stimuli; patient observed pacing halls, attending to internal stimuli; is eating all meals, is agreeable to medications and taking as prescribed with no report of side effects, with no s/ s of EPS/akathisia, and denies SI/HI, denies A/V hallucinations, and denies delusions. MSE: The patient is a well-nourished male looking stated chronological age. Attire is inappropriate and dress is casual and hospital garb combination. Grooming status is inappropriate and disheveled, unshaven. Ambulation is independent. Gait is normal and coordinated. Posture is normal and relaxed. Eye contact is appropriate. Motor activity is appropriate with purposeful, organized, coordinated movements; with no involuntary movements. Attitude is cooperative, at times guarded. Patient appears attentive and does relate well to this interviewer. Language production is spontaneous. R/R/V are normal. Amount is sparse to monosyllabic. Monotone. Articulation is clear. Patient reports mood as okay with incongruent and flat affect. Patients thought process blocked. Patient does not report suicidal/homicidal thoughts, ideas, or plans. Patient denies auditory, visual hallucinations. Patient denies delusions. Patient does appear to be attending to internal stimuli. Patients attention and concentration are poor. Patient is oriented to person, place, time. Patients insight and judgment poor. - Time Spent With Patient Time Spent With Patient: 15 minutes, met with patient individually. - Pending Discharge Pending Discharge Within 24 Hours: No Pending Discharge Within 48 Hours: No ICD10 Worksheet Patient Problems: Problems Problem Status Onset Bipolar I disorder with mood-congruent psychotic features Chronic
[2018-02-02] MEDS: ZIPRASIDONE HCL 20 MG CAP PO SCH ×2 (08:03→18:04)
[2018-02-02] MEDS: ZIPRASIDONE HCL 40 MG CAP PO SCH ×2 (08:03→18:03)
[2018-02-02] MEDS: LISINOPRIL 10 MG TAB PO SCH (08:04)
[2018-02-02] MEDS ORDERED: OXcarbazepine 300 MG TAB PO SCH ×2 (09:00→21:00)
--- NOTE | 2018-02-02 13:22 | ASMTCMCOM ---
CM Note CM Note Notes: CC checked in with ct. He said he was doing fine. Ct. did not engage in conversation and did not have anything else to add. Date Signed: 02/02/2018 01:21 PM Electronically Signed By:Alisha Cast
[2018-02-02] MEDS: DIVALPROEX ER 500 MG TAB PO SCH (20:24)
--- NOTE | 2018-02-03 07:35 | SOAPPROG ---
SOAP Progress Note Assessment/Plan: Assessment: Bipolar Disorder, Severe, with mood congruent psychotic features. Slight improvement noted with change from Trileptal to Depakote, notably improved sleep (see subjective/objective note). Patient is not safe to discharge at this time as patient continues to exhibit signs of hebert and psychosis, and express hebert and psychosis symptoms. Patient requires continued inpatient care because of current hebetr and psychosis, and requires inpatient level of care to stabilize in order to no longer be gravely disabled due to mental illness. Due to patients current, acute state he is unable to communicate his basic needs and requires direction and prompting from staff to perform ADLs. Patient could benefit from continued inpatient hospitalization for crisis stabilization, safety, and medication evaluation. Plan: 1. Psychotropic medications: After reviewing options, risks, and benefits patient agrees to continue current medications. No medication changes at this time as more time is needed to determine ongoing tolerability and efficacy. Plan is to continue to observe patient for response and side effects from medications, and ongoing monitoring and evaluation. 2. Review with patient informed consent and recommendations for psychotropic medication treatment listed below 3. Labs/Studies: VPA level 02/06/18 4. Therapy: continue milieu and group therapy 5. Further investigation including gathering information from patients relatives and review of past case records to inform treatment plan. 6. Safety/Wellness plan and follow-up outpatient appointments to be established prior to discharge. Next steps are for patient to meet with group care worker to plan a safe discharge plan and establish outpatient services for ongoing treatment. 7. Confer with inpatient treatment team regarding treatment plan. 8. Psychosocial stressors addressed through lining caser 9. Legal status: voluntary 10. Consider discharge Friday if patient is in stable condition, safe, and has a safe discharge plan. PSYCHOTROPIC MEDICATION TREATMENT INFORMED CONSENT and RECOMMENDATIONS: Review nature of condition, diagnosis, and prognosis. Review nature and purpose of psychotropic medication treatment. Review type of psychotropic medications being ordered. Review risk and benefits of psychotropic medication treatment. Review probable length of time patient will need to take medications. Review risk and benefits of not undergoing psychotropic medication treatment. Review alternative treatments to psychotropic medications. Review psychotropic medications contraindications, drug-drug interactions, side effects, and importance of reporting any side effects to a psychiatric provider or nurse during inpatient hospitalization, and upon discharge to patients psychiatric outpatient provider, primary care provider, or other health career development associate. Review importance of asking a nurse, psychiatric provider, or primary care provider any questions or problems concerning the psychotropic medications. Verify patient understands the information that has been provided, and understands, accepts, and agrees to psychotropic medications. Review patients safety plan and importance of patient to report to staff while hospitalized if patient is ever a danger to self/others, or unable to care for self, and upon discharge, the importance for patient to contact [facility] or [facility], or go to the nearest emergency room, if patient is ever a danger to self/others, or unable to care for self. Recommend that upon discharge patient establish medication management treatment with a psychiatric provider, establishes routine therapy appointments, and follow-up with primary care provider. Verify patient understands and agrees to these recommendations. 02/03/18 07:32 Subjective: Following up with patient for evaluation of psychosis and safety. Patient states, "Doing alright, slept better last night, that Depakote is working." Patient does not report undesirable side effects from the medications, and agrees to continue current medications. Patient reports appetite as good, and reports eating all meals. Patient describes getting 6 of sleep last night, and reports he feels rested today. Objective: Vital Signs Temp Pulse Resp BP Pulse Ox 36.5 C 80 15 123/76 H 100 02/03/18 06:00 02/03/18 06:00 02/03/18 06:00 02/03/18 06:00 02/03/18 06:00 NURSING REPORT: Consulted with nursing for update on patients progress in treatment. Nurses report patient is not engaged in treatment, is not attending groups, slept 5 hour, expresses the following psychiatric symptoms: anxiety; exhibits the following psychiatric symptoms: monosyllabic to sparse answers to questions, monotone, withdrawn, patient staring into his mirror in his room throughout the day, attending to internal stimuli; patient observed pacing halls while attending to internal stimuli; is eating all meals, requires prompting and direction from staff for ADLs and is unable to communicate his basic needs; is agreeable to medications and taking as prescribed with no report of side effects, with no s/s of EPS/akathisia, and denies SI/HI, denies A /V hallucinations, and denies delusions. MSE: The patient is a well-nourished male looking stated chronological age. Attire is inappropriate and dress is casual and hospital garb combination. Grooming status is inappropriate and disheveled, unshaven. Ambulation is independent. Gait is normal and coordinated. Posture is normal and relaxed. Eye contact is appropriate. Motor activity is appropriate with purposeful, organized, coordinated movements; with no involuntary movements. Attitude is cooperative, at times guarded. Patient appears attentive and does relate well to this interviewer. Language production is spontaneous. R/R/V are normal. Amount is sparse to monosyllabic. Monotone. Articulation is clear. Patient reports mood as okay with incongruent and flat affect. Patients thought process blocked. Patient does not report suicidal/homicidal thoughts, ideas, or plans. Patient denies auditory, visual hallucinations. Patient denies delusions. Patient does appear to be attending to internal stimuli. Patients attention and concentration are poor. Patient is oriented to person, place, time. Patients insight and judgment poor. - Time Spent With Patient Time Spent With Patient: 15 minutes, met with patient individually. - Pending Discharge Pending Discharge Within 24 Hours: No Pending Discharge Within 48 Hours: No ICD10 Worksheet Patient Problems: Problems Problem Status Onset Bipolar I disorder with mood-congruent psychotic features Chronic
[2018-02-03] MEDS: ZIPRASIDONE HCL 20 MG CAP PO SCH ×2 (09:18→17:47)
[2018-02-03] MEDS: ZIPRASIDONE HCL 40 MG CAP PO SCH ×2 (09:18→17:47)
[2018-02-03] MEDS: LISINOPRIL 10 MG TAB PO SCH (09:19)
[2018-02-03] MEDS: DIVALPROEX ER 500 MG TAB PO SCH (19:28)
--- NOTE | 2018-02-04 06:52 | SOAPPROG ---
SOAP Progress Note Assessment/Plan: Assessment: Bipolar Disorder, Severe, with mood congruent psychotic features. Slight improvement noted with change from Trileptal to Depakote, notably improved sleep (see subjective/objective note). Patient is not safe to discharge at this time as patient continues to exhibit signs of hebert and psychosis, and express hebert and psychosis symptoms. Patient requires continued inpatient care because of current hebert and psychosis, and requires inpatient level of care to stabilize in order to no longer be gravely disabled due to mental illness. Due to patients current, acute state he is unable to communicate his basic needs and requires direction and prompting from staff to perform ADLs. Patient exhibits inability to provide for himself, neglecting self-care, withdrawn from social interactions, currently shows inability to maintain any appropriate aspect of personal responsibility as an adult, patient becomes agitated and irritable when asked simple and appropriate questions, and patient reports high levels of family conflict (in treatment team yesterday patient reports being estranged from family support that lives in [facility]. Patient could benefit from continued inpatient hospitalization for crisis stabilization, safety, and medication evaluation. Overall, patient is improving , based on previous hospitalizations is likely reaching his baseline and plan for discharge Friday after VPA level. Plan: 1. Psychotropic medications: After reviewing options, risks, and benefits patient agrees to continue current medications. No medication changes at this time as more time is needed to determine ongoing tolerability and efficacy. Plan is to continue to observe patient for response and side effects from medications, and ongoing monitoring and evaluation. 2. Review with patient informed consent and recommendations for psychotropic medication treatment listed below 3. Labs/Studies: VPA level 02/06/18 4. Therapy: continue milieu and group therapy 5. Further investigation including gathering information from patients relatives and review of past case records to inform treatment plan. 6. Safety/Wellness plan and follow-up outpatient appointments to be established prior to discharge. Next steps are for patient to meet with critical care rn to plan a safe discharge plan and establish outpatient services for ongoing treatment. 7. Confer with inpatient treatment team regarding treatment plan. 8. Psychosocial stressors addressed through pillowcase cleaner 9. Legal status: voluntary 10. Consider discharge Friday if patient is in stable condition, safe, and has a safe discharge plan. PSYCHOTROPIC MEDICATION TREATMENT INFORMED CONSENT and RECOMMENDATIONS: Review nature of condition, diagnosis, and prognosis. Review nature and purpose of psychotropic medication treatment. Review type of psychotropic medications being ordered. Review risk and benefits of psychotropic medication treatment. Review probable length of time patient will need to take medications. Review risk and benefits of not undergoing psychotropic medication treatment. Review alternative treatments to psychotropic medications. Review psychotropic medications contraindications, drug-drug interactions, side effects, and importance of reporting any side effects to a psychiatric provider or nurse during inpatient hospitalization, and upon discharge to patients psychiatric outpatient provider, primary care provider, or other health child care. Review importance of asking a nurse, psychiatric provider, or primary care provider any questions or problems concerning the psychotropic medications. Verify patient understands the information that has been provided, and understands, accepts, and agrees to psychotropic medications. Review patients safety plan and importance of patient to report to staff while hospitalized if patient is ever a danger to self/others, or unable to care for self, and upon discharge, the importance for patient to contact [facility] or [facility], or go to the nearest emergency room, if patient is ever a danger to self/others, or unable to care for self. Recommend that upon discharge patient establish medication management treatment with a psychiatric provider, establishes routine therapy appointments, and follow-up with primary care provider. Verify patient understands and agrees to these recommendations. 02/04/18 06:53 Subjective: Following up with patient for evaluation of psychosis and safety. Patient states, "Doing good, sleeping better, feeling better." Patient does not report undesirable side effects from the medications, and agrees to continue current medications. Patient reports appetite as good, and reports eating all meals. Patient describes getting 6 of sleep last night, and reports he feels rested today. Objective: Vital Signs Temp Pulse Resp BP Pulse Ox 36.5 C 80 15 123/76 H 100 02/03/18 06:00 02/03/18 06:00 02/03/18 06:00 02/03/18 09:19 02/03/18 06:00 NURSING REPORT: Consulted with nursing for update on patients progress in treatment. Nurses report patient is not engaged in treatment, is not attending groups, slept 5 hour, expresses the following psychiatric symptoms: anxiety; exhibits the following psychiatric symptoms: continued monosyllabic to sparse answers to questions, monotone, withdrawn to room, attending to internal stimuli ; patient observed pacing halls yesterday and staring into mirror in his room attending to internal stimuli, delusional, and at times irritable and agitated, is eating all meals, requires prompting and direction from staff for ADLs, continues to have difficulty communicating his basic needs; is agreeable to medications and taking as prescribed with no report of side effects, with no s/ s of EPS/akathisia, and denies SI/HI, denies A/V hallucinations, and 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 MSE: The patient is a well-nourished male looking stated chronological age. Attire is inappropriate and dress is casual and hospital garb combination. Grooming status is inappropriate and disheveled, unshaven. Ambulation is independent. Gait is normal and coordinated. Posture is normal and relaxed. Eye contact is appropriate. Motor activity is appropriate with purposeful, organized, coordinated movements; with no involuntary movements. Attitude is cooperative, at times guarded. Patient appears attentive and does relate well to this interviewer. Language production is spontaneous. R/R/V are normal. Amount is sparse to monosyllabic. Monotone. Articulation is clear. Patient reports mood as okay with incongruent and flat affect. Patients thought process blocked. Patient does not report suicidal/homicidal thoughts, ideas, or plans. Patient denies auditory, visual hallucinations. Patient reports delusions. Patient does appear to be attending to internal stimuli. Patients attention and concentration are poor. Patient is oriented to person, place, time. Patients insight and judgment poor. - Time Spent With Patient Time Spent With Patient: 15 minutes, met with patient individually. - Pending Discharge Pending Discharge Within 24 Hours: No Pending Discharge Within 48 Hours: Yes Pending Discharge Date: 02/06/18 Pending Discharge Time: 11:00 ICD10 Worksheet Patient Problems: Problems Problem Status Onset Bipolar I disorder with mood-congruent psychotic features Chronic
[2018-02-04] MEDS: LISINOPRIL 10 MG TAB PO SCH (08:08)
[2018-02-04] MEDS: ZIPRASIDONE HCL 20 MG CAP PO SCH ×2 (08:09→17:39)
[2018-02-04] MEDS: ZIPRASIDONE HCL 40 MG CAP PO SCH ×2 (08:09→17:39)
--- NOTE | 2018-02-04 13:08 | ASMTCMCOM ---
CM Note CM Note Notes: The patient reported that he was "doing fine" and that he did not require any assistance today. According to [facility] staff, the patient has been cooperative with treatment. will notify [facility] tomorrow, February 05, of plan to discharge February 06. Date Signed: 02/04/2018 01:07 PM Electronically Signed By:Emily Mireles
[2018-02-04] MEDS: DIVALPROEX ER 500 MG TAB PO SCH (21:01)
--- NOTE | 2018-02-05 06:41 | SOAPPROG ---
SOAP Progress Note Assessment/Plan: Assessment: Bipolar Disorder, Severe, with mood congruent psychotic features. Improvement noted. (see subjective/objective note). Patient could benefit from continued inpatient hospitalization for crisis stabilization, safety, and medication evaluation. Overall, patient has improved, likely reaching baseline based on previous hospitalizations. Likely discharge tomorrow after VPA level and indicated Depakote ER dose adjustment. Plan: 1. Psychotropic medications: After reviewing options, risks, and benefits patient agrees to continue current medications. No medication changes at this time as more time is needed to determine ongoing tolerability and efficacy. Plan is to continue to observe patient for response and side effects from medications, and ongoing monitoring and evaluation. Consider increasing Depakote ER as indicated by VPA level drawn this AM. 2. Review with patient informed consent and recommendations for psychotropic medication treatment listed below 3. Labs/Studies: VPA level this morning, awaiting results 4. Therapy: continue milieu and group therapy 5. Further investigation including gathering information from patients relatives and review of past case records to inform treatment plan. 6. Safety/Wellness plan and follow-up outpatient appointments to be established prior to discharge. Next steps are for patient to meet with child care associate to plan a safe discharge plan and establish outpatient services for ongoing treatment. 7. Confer with inpatient treatment team regarding treatment plan. 8. Psychosocial stressors addressed through immigration case manager 9. Legal status: voluntary 10. Consider discharge Friday if patient is in stable condition, safe, and has a safe discharge plan. PSYCHOTROPIC MEDICATION TREATMENT INFORMED CONSENT and RECOMMENDATIONS: Review nature of condition, diagnosis, and prognosis. Review nature and purpose of psychotropic medication treatment. Review type of psychotropic medications being ordered. Review risk and benefits of psychotropic medication treatment. Review probable length of time patient will need to take medications. Review risk and benefits of not undergoing psychotropic medication treatment. Review alternative treatments to psychotropic medications. Review psychotropic medications contraindications, drug-drug interactions, side effects, and importance of reporting any side effects to a psychiatric provider or nurse during inpatient hospitalization, and upon discharge to patients psychiatric outpatient provider, primary care provider, or other health elderly caregiver. Review importance of asking a nurse, psychiatric provider, or primary care provider any questions or problems concerning the psychotropic medications. Verify patient understands the information that has been provided, and understands, accepts, and agrees to psychotropic medications. Review patients safety plan and importance of patient to report to staff while hospitalized if patient is ever a danger to self/others, or unable to care for self, and upon discharge, the importance for patient to contact [facility] or [facility], or go to the nearest emergency room, if patient is ever a danger to self/others, or unable to care for self. Recommend that upon discharge patient establish medication management treatment with a psychiatric provider, establishes routine therapy appointments, and follow-up with primary care provider. Verify patient understands and agrees to these recommendations. 02/05/18 06:42 Subjective: Following up with patient for evaluation of psychosis and safety. Patient states, "Doing alright." Patient does not report undesirable side effects from the medications, and agrees to continue current medications. Patient reports appetite as good, and reports eating all meals. Patient describes getting 6 of sleep last night, and reports he feels rested today. Patient reports no psychiatric symptoms. Objective: Vital Signs Temp Pulse Resp BP Pulse Ox 36.8 C 87 14 116/73 93 02/04/18 06:00 02/04/18 06:00 02/04/18 06:00 02/04/18 08:08 02/04/18 06:00 NURSING REPORT: Consulted with nursing for update on patients progress in treatment. Nurses report patient is not engaged in treatment, is not attending groups, slept 4.5 hour, expresses the following psychiatric symptoms: anxiety; exhibits the following psychiatric symptoms: continued monosyllabic to sparse answers to questions, monotone, withdrawn to room, at times pacing halls; is eating all meals; is agreeable to medications and taking as prescribed with no report of side effects, with no s/s of EPS/akathisia, and denies SI/HI, denies A /V hallucinations, and denies delusions. MSE: The patient is a well-nourished male looking stated chronological age. Attire is inappropriate and dress is casual and hospital garb combination. Grooming status is inappropriate and disheveled, unshaven. Ambulation is independent. Gait is normal and coordinated. Posture is normal and relaxed. Eye contact is appropriate. Motor activity is appropriate with purposeful, organized, coordinated movements; with no involuntary movements. Attitude is cooperative, at times guarded. Patient appears attentive and does relate well to this interviewer. Language production is spontaneous. R/R/V are normal. Amount is sparse to monosyllabic. Monotone. Articulation is clear. Patient reports mood as okay with incongruent and flat affect. Patients thought process has improved. Patient does not report suicidal/homicidal thoughts, ideas, or plans. Patient denies auditory, visual hallucinations. Patient reports delusions. Patient does not appear to be attending to internal stimuli. Patients attention and concentration are poor. Patient is oriented to person, place, time. Patients insight and judgment poor. - Time Spent With Patient Time Spent With Patient: 15 minutes, met with patient individually. - Pending Discharge Pending Discharge Within 24 Hours: Yes Pending Discharge Within 48 Hours: No Pending Discharge Date: 02/06/18 Pending Discharge Time: 11:00 ICD10 Worksheet Patient Problems: Problems Problem Status Onset Bipolar I disorder with mood-congruent psychotic features Chronic
--- NOTE | 2018-02-05 08:24 | ASMTBHDC ---
Notes Note: Notes: CC was able to contact transport for [employer] at ; to provide notification that client will be discharging tomorrow. CC tried to explain the process to the caller, of "please let me know when would be a good time for transport back to [facility], so I can let the doctor and nursing staff know, so the transporting officers don't have to wait., etc" The contact noted that she will call the CC phone number provided [phone] with a "one hour notice," before transportation arrives. CC encouraged contact to provide more time than an hour due to discharging client more efficiently to officers, etc. Tomorrow CC please follow up.* Date Signed: 02/05/2018 08:23 AM Electronically Signed By:Bill Ridley
[2018-02-05] MEDS: LISINOPRIL 10 MG TAB PO SCH (08:30)
[2018-02-05] MEDS: ZIPRASIDONE HCL 20 MG CAP PO SCH ×2 (08:30→17:48)
[2018-02-05] MEDS: ZIPRASIDONE HCL 40 MG CAP PO SCH ×2 (08:30→17:48)
[2018-02-05] MEDS: DIVALPROEX ER 500 MG TAB PO SCH (20:08)
[2018-02-06 06:39] VITALS: BP 146/75
[2018-02-06] MEDS: ZIPRASIDONE HCL 40 MG CAP PO SCH (08:23)
[2018-02-06] MEDS: ZIPRASIDONE HCL 20 MG CAP PO SCH (08:23)
[2018-02-06] MEDS: LISINOPRIL 10 MG TAB PO SCH (08:23)
--- NOTE | 2018-02-06 10:16 | BDS ---
REASON FOR ADMISSION: From the ED note dated 01/24/2018, patient arrived from half-way on an M1 hold. Patient apparently had been noncompliant with medications, exhibiting delusions and combative behavior. During the ED assessment, the patient was combative, uncooperative, and refused to cooperate with exam. Patient was admitted involuntarily on an M1 hold due to being gravely disabled due to a mental illness. Patient was admitted for safety, crisis stabilization , and medication evaluation. Patient was admitted while on a detainer from half-way. ADMITTING DIAGNOSES: 1. Bipolar 1 disorder, severe, with mood congruent psychotic features. 2. Nonadherence to medical treatment suspected. ADMISSION PHYSICAL EXAM: The patient was seen for an Internal Medicine consultation on 01/24/2018, for medical clearance for inpatient psychiatric hospitalization. Patient was medically cleared for inpatient psychiatric hospitalization and treatment. For further details, please refer to both ED note dated 01/24/2018, and also consultation note dated 01/24/2018. ADMISSION LABS: CBC from 01/24/2018, within normal limits, except white blood cells were low at 3.28. MPV was low at 7.7. Neutrophils were low at 30.5, and lymphocytes were elevated at 55.8. Absolute neutrophils were low at 1.00. BMP from 01/24/2018, within normal limits, except sodium was low at 132. Chloride was low at 94. Hemoglobin A1c on 01/24/2018, was within normal limits at 6.0. Liver function from 01/24/2018, within normal limits. Lipid panel from 2017, within normal limits, except HDL cholesterol was elevated at 69. Toxicology screen from 01/24/2018, negative for all substances tested and negative for ethyl alcohol. Valproic acid level on 02/05/2018, was 84.0, and that is at the current Depakote ER dose of 2000 mg p.o. daily. MAJOR PROCEDURES OR TESTS: Electrocardiogram on 01/28/2018: Results indicate sinus rhythm. QTc interval was 435 milliseconds. HOSPITAL COURSE: The most prominent symptoms and behaviors while the patient was here were very little sleep. Patient slept from 0-2 hours for several days after admission. Patient observed pacing calls, standing in his room, staring in the mirror, and also observed during mealtimes staring out the window, and during these times, patient was attending to internal stimuli. The patient was withdrawn. Treatment modalities utilized were milieu and group therapy. Geodon was continued to target mood and psychosis symptoms, was titrated to 100 mg p.o. b.i.d. to target acute psychosis symptoms. Medication was tolerated with no report of side effects and with good response. Trileptal was continued and titrated to 600 mg p.o. b.i.d. Medication was tolerated with no report of side effects and with poor response. Trileptal was tapered and discontinued, and Depakote ER 2000 mg p.o. q.h.s. was started to target mood symptoms, was tolerated with no report of side effects and with good response. Patient's valproic acid level at current dose of 2000 mg p.o. daily of Depakote was 84.0, and will continue this dose after discharge. Bipolar I Disorder was ruled out and diagnosis at time of discharge is schizoaffective disorder, bipolar type. The patient has improved considerably since the time of admission and is now at his baseline. Patient reports he has improved since admission, states to be in stable condition, feels safe to discharge, and he contracts for safety. Patient 's response to treatment was good. There were no adverse or unexpected results of treatment. The patient was safe throughout his stay and was appropriate with staff and other patients. The patient met with the treatment team prior to discharge to assess readiness to discharge and review discharge plan. The treatment team consensus is the patient is in stable condition, has a safe discharge plan, and is ready to discharge today. CONDITION ON DISCHARGE: The patient is in stable condition and is no longer a danger to self or others and is not gravely disabled due to a mental illness. Patient is no longer in need of inpatient level of care and can safely and effectively be treated within the community. Patient's level of risk at time of discharge is low. MENTAL STATUS EXAM: The patient is a well-nourished male, looking stated chronological age. Attire is appropriate, and dress is hospital garb. Grooming status is appropriate. Ambulation is independent. Gait is normal and coordinated. Posture is normal and relaxed. Eye contact is appropriate and adequate. Motor activity is appropriate with purposeful, organized, coordinated movements, with no involuntary movements noted. Attitude is cooperative and friendly. The patient appears attentive and relates well to this interviewer. Language production is spontaneous. Rate, rhythm and volume are normal. Articulation is clear. The patient reports mood as "okay," with constricted and flat, incongruent and inappropriate affect. The patient's thought process is linear and logical, with no loose associations, tangential thought, thought blocking, concrete thinking, or any other signs of formal thought disorder. The patient does not report suicidal/homicidal thoughts, ideas, or plans. The patient denies auditory/visual hallucinations. The patient denies delusions. Patient does not appear to be attending to internal stimuli during discharge interview. The patient is oriented to person, place, time, and situation. The patient's attention and concentration are fair. The patient's insight and judgment are fair. The patient does not report any undesirable side effects from current medications. DISCHARGE DIAGNOSES: Schizoaffective disorder, bipolar type. CURRENT MEDICATIONS: After reviewing options, risks and benefits with the patient, the patient agrees to continue: 1. Depakote ER 2000 mg p.o. q.h.s. 2. Lisinopril 10 mg p.o. daily. 3. Geodon 80 mg p.o. b.i.d. with meal. The patient requests prescriptions for these medications at the time of discharge. Prescriptions for 30 days for each medication are provided. Prescriptions are reviewed with the patient at time of discharge to ensure accuracy and patient understanding. DISPOSITION: Patient left hospital independently and voluntarily with and will be escorted back to half-way, accompanied by . FOLLOWUP: quality compliance coordinator reports the appropriate outpatient follow-up services have been established and outpatient appointments have been scheduled. The patient received written instructions with times and dates of outpatient follow-up appointments. The following follow-up recommendations were provided to the patient at discharge: Continue psychotropic medications as prescribed and attend appointments as scheduled. Report any side effects to a psychiatric outpatient provider, a primary care provider, or other health healthcare risk control consultant. Address any questions or problems concerning the psychotropic medications with a psychiatric outpatient provider, a primary care provider, or other health healthcare risk control consultant. Contact [facility] or [facility], or go to the nearest emergency room, if you are ever a danger to yourself/others, or unable to care for yourself. As soon as possible, establish a routine medication management treatment with a psychiatric provider, establish routine therapy appointments, and follow-up with a primary care provider. LEGAL COURSE: Patient was admitted on an M1 hold for involuntary inpatient psychiatric hospitalization. Patient became voluntary during his stay, and patient discharged today independently and voluntarily. ATTITUDE AT TIME OF DISCHARGE: The patients attitude was positive at time of discharge, and patient reports looking forward to discharging today. The patient reports he feels safe to discharge, is no longer a danger to himself or others, is in stable condition, and contracts for safety. Patient states he will continue medications as prescribed, and establish medication management treatment with an outpatient provider after discharge. Patient reports he understands the information that has been provided to him, and he understands, accepts, and agrees to psychotropic medications. Patient describes internal protective factors as the coping skills he has learned while hospitalized here, and he plans to continue to practice these coping skills after discharge. LABS AND STUDIES: There were no pending labs or studies at time of discharge. ADVANCE DIRECTIVES: There were no advance directives on file, and patient was full code during this hospitalization. The following psychotropic medication treatment informed consent and recommendations were provided to the patient at time of discharge. Patient reports he understands, accepts, and agrees to the information that has been provided. PSYCHOTROPIC MEDICATION TREATMENT INFORMED CONSENT and RECOMMENDATIONS: Review nature of condition, diagnosis, and prognosis. Review nature and purpose of psychotropic medication treatment. Review type of psychotropic medications being prescribed. Review risk and benefits of psychotropic medication treatment. Review probable length of time will need to take medications. Review risk and benefits of not undergoing psychotropic medication treatment. Review alternative treatments to psychotropic medications. Review psychotropic medications contraindications, side effects, and importance of reporting any side effects to a psychiatric provider, primary care provider, or other health healthcare risk control consultant. Review importance of asking a psychiatric provider or primary care provider any questions or problems concerning the psychotropic medications. Review safety plan and the importance to contact [facility] or [facility] , or go to the nearest emergency room, if ever a danger to yourself/others, or unable to care for yourself. Recommend upon discharge to establish routine medication management treatment with a psychiatric provider, establish routine therapy appointments, and follow-up with a primary care provider. Verify patient understands, accepts, and agrees to the information that has been provided. /[id number]/[id number]
== END 2018-02-06 08:57 | disposition home or self-care (01) | DRG 885 ==
LOC: EDUNIT# → EEVIPCON 13:55 → BBEH 21:10
PROVIDERS: ADMIT Psychiatry & Neurology Psychiatry; ATTEND Registered Nurse
DX: F25.0 Schizoaffective disorder, bipolar type (principal); E87.1 Hypo-osmolality and hyponatremia; E11.9 Type 2 diabetes mellitus without complications; E66.9 Obesity, unspecified; Z91.14 Patient's other noncompliance with medication regimen
CPT/HCPCS: 80305; G0008; G0480